=== PATIENT | female | born 1990 | race Caucasian/White ===

== ENCOUNTER → 2022-05-15 07:53 | Outpatient (CLI) | payer OTHER, SELFPAY ==
--- NOTE | ~2022-05-15 | US_ITS ---
EXAMINATION: US renal BI DATE: 05/15/2022 08:26 INDICATION: Family history of polycystic kidney disease TECHNIQUE: Multiple grayscale and Doppler ultrasound images of the kidneys were obtained. COMPARISON: None available FINDINGS: The right kidney measures 10.9 x 4.5 x 5.8 cm. The left kidney measures 11.8 x 4.4 x 4.9 cm. The kidn eys demonstrate normal parenchymal echogenicity.No sonographic evidence of nephrolithiasis. No mass. No hydronephrosis. The bladder is well-distended and normal in appearance. IMPRESSION: 1. Normal renal sonogram findings. Reviewed, dictated and finalized at location K.
== END ==
PROVIDERS: PCP Internal Medicine; Visit Provider Internal Medicine
DX: Z82.71 Family history of polycystic kidney (principal)
CPT/HCPCS: 76775

== ENCOUNTER 2022-09-16 17:46 | Emergency (ER) | payer OTHER, SELFPAY ==
--- NOTE | ~2022-09-16 | CT_ITS ---
EXAMINATION: CT brain wo con DATE: 09/16/2022 18:36 INDICATION: Left facial numbness. TECHNIQUE: Computed tomography (CT) of the head was performed without intravenous contrast. The mA wa s adjusted according to patient size. Iterative reconstruction technique was employed. The dose-lengt h product was 605.33 mGy-cm. COMPARISON: None FINDINGS: There is no intracranial hemorrhage, acute infarction, or abnormal intracranial mass lesion . The ventricles are normal in size. The orbits are normal. The paranasal sinuses are clear. The mast oid air cells are normal. IMPRESSION: 1. Normal brain. Reviewed, dictated and finalized at location A. IMPRESSION: 1. Normal brain.
[2022-09-16 17:51] VITALS: BP 142/100; PULSE 100; RESP 17; TEMP 36.7; O2SAT 100
[2022-09-16 18:10] VITALS: PULSE 110
--- NOTE | 2022-09-16 18:12 | ED.GENADULT ---
HPI - General Adult General Chief complaint: Unspecified Stated complaint: L. sided facial numbness x 2 days Time Seen by Provider: 09/16/22 18:12 History of Present Illness HPI narrative: Patient is a 32-year-old female here for evaluation of left-sided chest numbness over the past 3 days. Patient states that she feels a [id number] sensation in the left side of her chin over the past 3 days. The numbness came on around the same time she developed a cold sore on the left lower lip. She typically takes antiviral suppressants when she gets cold sores, but this time the pharmacy did not cover the prescription, and therefore she is not on any antivirals. She denies any changes to her vision, lesions to her ear or nose, fevers or chills, unilateral weakness, slurred speech, decreased hearing. She is previously healthy and does not take any medications on a daily basis. Related Data Allergies Allergy/AdvReac Type Severity Reaction Status Date / Time amoxicillin Allergy Unknown Rash Verified 09/16/22 18:09 Penicillins Allergy Unknown Rash Verified 09/16/22 18:09 Review of Systems Review of Systems: Gen: Denies fevers or chills Eyes: Denies eye pain or visual change ENT: Denies congestion Respiratory: Denies shortness of breath or cough CV: Denies chest pain or palpitations GI: Denies abdominal pain nausea, emesis or diarrhea denies burning, urgency, frequency or hematuria Musculoskeletal: Denies back pain or muscle pain Neuro: Denies numbness, tingling, weakness or focal weakness Skin: Reports left-sided chin numbness and cold sore. Except as documented, all other systems reviewed and negative [facility] Past Medical History Medical History History of miscarriage Surgical History Surgical History History of 2 sections Family History Family History Other Hypertension Social History Social History Smoking status: Never smoker Alcohol intake: current Substance use: never Exam Narrative: APPEARANCE: Well appearing, no pain in distress, well-nourished. Head: Normocephalic and atraumatic. EYES: PERRLA/EOMI, conjunctivae clear NOSE: No nasal drainage EARS: External ear normal in appearance THROAT: Oropharynx is clear. Mucous membranes are moist. NECK: Supple. No adenopathy, no masses. RESPIRATORY: Airway patent, respirations nonlabored. Clear to auscultation bilaterally, no rales, rhonchi, wheezing. CARDIOVASCULAR: Regular rate and rhythm without murmurs, rubs, or gallops. ABDOMINAL: Normoactive bowel sounds. Soft, nontender, nondistended. No rebound tenderness or guarding. MUSCULOSKELETAL: Extremities are warm and well-perfused. Moves all extremities well. No edema. NEURO: Cranial nerves II through XII intact. Sensation intact to area of numbness on chin. [id number] normal. Tool Tender strength equal. Normal gait. Normal speech. SKIN: Patient has a 0.5 cm vesicle to the left lower lip. No lesions noted to nose, ear. PSYCHIATRIC: Normal affect/mood. Course Vital Signs Vital signs: Vital Signs Temperature 98.1 F 09/16/22 17:51 Pulse Rate 100 09/16/22 17:51 Respiratory Rate 17 09/16/22 17:51 Blood Pressure 142/100 H 09/16/22 17:51 Pulse Oximetry 100 09/16/22 17:51 Oxygen Delivery Room Air 09/16/22 17:51 Temperature 98.3 F 09/16/22 19:42 Pulse Rate 76 09/16/22 19:42 Respiratory Rate 16 09/16/22 19:42 Blood Pressure 126/70 09/16/22 19:42 Pulse Oximetry 100 09/16/22 19:42 Oxygen Delivery Room Air 09/16/22 17:51 Medical Decision Making MDM Narrative Medical decision making narrative: 32-year-old female here for evaluation of some numbness under her right lip for the past 3 days in the setting of a cold sore. She is nont
[2022-09-16 18:17] VITALS: BP 120/92; PULSE 115; RESP 20
--- NOTE | 2022-09-16 18:25 | PC.NURSE ---
pt c/o left chin numbness. states similiar feeling as when you sit on your leg too long. no facial weakness. tongue midline. no drooping noted.
[2022-09-16 18:33] LABS: Basophils Absolute Auto 0.1 K/mm3 (0.0-0.1); Basophils Percent Auto 0.5 % (0.2-1.2); Eosinophils Percent Auto 0.1 % (0-4.4); Hematocrit 36.4 % (37.0-47.0); Hemoglobin 11.7 g/dL (12.0-15.0); Immature Granulocyte Absolute 0.03 K/mm3 (0.00-0.031); Immature Granulocyte Percent A 0.3 % (0-0.5); Lymphocytes Absolute Auto 1.57 K/mm3 (0.9-3.2); Lymphocytes Percent Auto 16.7 % (18.3-44.2); Mean Corpuscular HGB Conc 32.1 g/dl (32-36); Mean Corpuscular Hemoglobin 26.5 pg (26-34); Mean Corpuscular Volume 82.4 fl (80-100); Mean Platelet Volume 10.7 fl (7.4-10.4); Monocytes Absolute Auto 0.5 K/mm3 (0.1-0.6); Monocytes Percent Auto 5.3 % (2.6-8.5); Neutrophils Absolute Auto 7.2 K/mm3 (1.3-6.7); Neutrophils Percent Auto 77.1 % (45.5-73.1); Platelet Count Result 353 k/mm3 (150-375); Red Blood Count 4.42 M/mm3 (4.2-5.4); Red Cell Distribution Width 15.9 % (11.5-14.5); White Blood Count 9.4 K/mm3 (4.5-10.0)
[2022-09-16 18:45] LABS: Alanine Aminotransferase 20 U/L (6-35); Alkaline Phosphatase 59 U/L (38-126); Anion Gap 14 mmol/L (8-16); Aspartate Amino Transferase 26 U/L (14-36); Bilirubin,Total 0.3 mg/dL (0.2-1.3); Blood Urea Nitrogen 15 mg/dL (7-17); Calcium 9.5 mg/dL (8.4-10.2); Carbon Dioxide 23 mmol/L (22-30); Chloride 100 mmol/L (98-107); Estimated CRCL calculation 100 ml/min; Estimated Glomerular Filt Rate > 60; Glucose 101 mg/dL (65-110); Potassium 3.9 mmol/L (3.4-5.0); Sodium 137 mmol/L (137-145)
[2022-09-16 19:42] VITALS: BP 126/70; PULSE 76; RESP 16; TEMP 36.8; O2SAT 100
== END 2022-09-16 19:43 | disposition home or self-care (01) ==
PROVIDERS: Physician Assistant; Emergency Provider Emergency Medicine; PCP Internal Medicine
DX: B00.1 Herpesviral vesicular dermatitis (principal)
CPT/HCPCS: 36415; 70450; 80053; 85025; 99284

== ENCOUNTER 2022-12-01 09:05 | Emergency (ER) | payer OTHER, SELFPAY ==
[2022-12-01 09:16] VITALS: BP 129/96; PULSE 77; RESP 16; TEMP 36.3; O2SAT 100
--- NOTE | 2022-12-01 09:42 | ED.CHESTPAIN ---
HPI - Chest Pain General Chief Complaint: Chest Pain Stated Complaint: chest pain Time Seen by Provider: 12/01/22 09:18 Source: patient, RN notes reviewed and old records reviewed Mode of arrival: ambulatory Limitations: no limitations History of Present Illness HPI narrative: 32 year old female who presents to [facility] care with complaints of right sided chest pain along the right side of sternum which initially started about 6 months ago after picking up her twins which weigh between 50--60 pounds. patient reports that she took some Ibuprofen and rested and stopped picking up heaving things and seemed to get better. She reports that she has just been doing normal things lately not really limiting her activity and pain has increased for the past 3-4 days which is reproducible with movements and with palpation, no dyspnea, no dizziness, denies any cardiac history. MD complaint: chest discomfort Onset (ago): day(s) (3-4 days but initially 6 months ago started) Pain location: other (right side of sternum) Treatment prior to arrival: other (ibuprofen few doses) Related Data Allergies Allergy/AdvReac Type Severity Reaction Status Date / Time amoxicillin Allergy Unknown Rash Verified 12/01/22 09:26 Penicillins Allergy Unknown Rash Verified 12/01/22 09:26 Review of Systems Review of Systems: CONSTITUTIONAL: Denies fever, chills, or sweats. EYES: Denies visual changes, redness, or discharge. ENT: Denies rhinorrhea, congestion, sore throat, or otalgia. CARDIOVASCULAR: reports chest pain along right of sternum,no palpitations, or edema. RESPIRATORY: Denies cough or dyspnea. GASTROINTESTINAL: Denies abdominal pain, nausea, vomiting, or diarrhea. GENITOURINARY: Denies dysuria or hematuria. SKIN: Denies rash or itching. MUSCULOSKELETAL: Denies back pain, joint pain, or myalgia. NEUROLOGIC: Denies headache, numbness, or weakness. PSYCHIATRIC: Denies anxiety or depression. All systems reviewed & are unremarkable except as noted in HPI and below PMFSH Past Medical History Medical History (Updated 12/02/22 @ 00:01 by Marylou Rodriguez) History of miscarriage Surgical History Surgical History (Updated 12/01/22 @ 09:50 by Aileen Castillo NP) History of 2 sections History of tonsillectomy Family History Family History Other Hypertension Social History Social History (Updated 12/01/22 @ 09:49 by Aileen Castillo NP) Smoking status: Never smoker Alcohol intake: current Substance use: never Gender identity (if verbalized by the patient): Female Comments At time of signature, agree with nursing past medical, surgical, social and family history. There is no relevant family history pertinent to the presenting complaint Exam Narrative: GENERAL: Well-appearing, well-nourished, and in no acute distress. HEAD: Normocephalic, atraumatic. EYES: PERRLA and EOMI. ENT: Nares clear, no rhinorrhea or epistaxis. Mucous membranes moist.T's normal with good light reflex, throat pink with no lesions or exudates or swelling NECK: Supple.no lymphadenopathy CHEST: Clear to auscultation. No respiratory distress.tenderness to right of sternum on palpation and with certain movements, SAO2 100% on room air HEART: Regular rate and rhythm. No murmur heard. Normal peripheral pulses. ABDOMEN: Soft, nontender, nondistended, normal active bowel sounds. EXTREMITIES: Normal range of motion. No edema. SKIN: Warm, dry, no rash. NEURO: No focal deficits. Alert and oriented x3. Course Course Emergency Course: Patient is aware of diagnosis, understands and agrees to treatment plan.? Anticipatory guidance given.? Patient agrees to follow-up as directed and is aware of reasons to seek care at the emergency department. Portions of this record may have been created with voice recognition software Level of Care: Express Care Visit Vital Signs Vital signs: Vital Signs Temperature 36.3 C
== END 2022-12-01 09:59 | disposition home or self-care (01) ==
PROVIDERS: Emergency Provider Registered Nurse; PCP Internal Medicine
DX: M94.0 Chondrocostal junction syndrome [Tietze] (principal)
CPT/HCPCS: 99213; G0463

== ENCOUNTER 2022-12-02 10:14 | Outpatient (CLI) | payer OTHER, SELFPAY ==
--- NOTE | ~2022-12-02 | XR_ITS ---
XR chest 2V DATE: 12/02/2022 10:31 INDICATION: Sternal pain TECHNIQUE: 2 views COMPARISON: None FINDINGS: There is approximately 23 degrees dextroscoliosis of the thoracic spine. The sternum appear s unremarkable within the limits of this chest radiographic examination. Normal heart size. No hilar or mediastinal enlargement. The lungs are clear of infiltrate or consolidation. No pleural effusion or pulmonary vascular congest ion or pneumothorax is detected. IMPRESSION: 23 degrees thoracic dextro scoliosis No active cardiopulmonary disease Reviewed, dictated and finalized at location L. CULAR MODELER
== END 2022-12-02 10:15 ==
LOC: MICIMG 10:17
PROVIDERS: PCP Internal Medicine; Visit Provider Internal Medicine
DX: R07.89 Other chest pain (principal); M41.84 Other forms of scoliosis, thoracic region
CPT/HCPCS: 71046

== ENCOUNTER 2022-12-29 08:02 | Emergency (ER) | payer OTHER, SELFPAY ==
--- NOTE | 2022-12-29 08:05 | ED.URI ---
HPI - URI/Sore Throat General Chief Complaint: Upper Respiratory Infection Stated Complaint: FEVER/SORE THROAT/BODY ACHES/STREP EXPOSURE Time Seen by Provider: 12/29/22 08:04 Source: patient Mode of arrival: ambulatory Limitations: no limitations History of Present Illness HPI Narrative: Rosa is a 32-year-old female patient presenting to the clinic today with complaints sore throat, body aches, and fever x1 day. She reports that she has had strep exposure from her child. States highest temp was a 104? MD elicited complaint: fever, sore throat and other (Body aches) Related Data Allergies Allergy/AdvReac Type Severity Reaction Status Date / Time amoxicillin Allergy Unknown Rash Verified 12/29/22 08:13 Penicillins Allergy Unknown Rash Verified 12/29/22 08:13 Review of Systems Review of Systems: Pertinent positives per HPI. Patient denies any rash, headache, visual changes, dizziness, cough, shortness of breath, chest pain, palpitations, nausea, vomiting, diarrhea, constipation, abdominal pain, or any urinary issues. PMFSH Past Medical History Medical History History of miscarriage Surgical History Surgical History History of 2 sections History of tonsillectomy Family History Family History Other Hypertension Social History Social History Smoking status: Never smoker Alcohol intake: current Substance use: never Gender identity (if verbalized by the patient): Female Comments At the time of my signature, I reviewed and agree with the nursing past medical, surgical, social, and family history. There is no relevant family history pertinent to the patient complaint. Exam Narrative: General: Well-developed, well nourished, in no apparent distress Head: Normocephalic, atraumatic Eyes: Pupils equally round and reactive to light bilaterally, EOM intact, sclera and conjunctive clear, no discharge, lids normal Ears: TMs intact and clear, ear canals clear, no drainage, grossly hearing normal. Nose: Nares patent, no discharge, no inflammation, no sinus tenderness. Mouth: Oral pharynx without lesions or masses, good dentition, MMM. Oropharynx red with uvula swelling, tonsils surgically absent Neck: Supple, trachea midline, no enlargement of anterior or posterior cervical nodes, no thyroid masses or goiter palpable. Cardio: Regular rate and rhythm, s1 and s2 normal, no murmur appreciated. Resp: Clear to auscultation bilaterally, no rhonchi, rales, wheezing or rubs Course Course Emergency Course: Portions of this record may have been created with voice recognition software. Level of Care: Express Care Visit Vital Signs Vital signs: Vital signs reviewed MDM - URI/Sore Throat MDM Narrative Medical decision making narrative: At the time of visit patient is resting comfortably on exam table. Strep screen was obtained and was positive. Prescription for azithromycin was sent to the pharmacy and supportive measures were discussed with the patient she voiced understanding of discharge instructions and agrees to treatment plan. Differential Diagnosis Differential diagnosis: Likely upper respiratory infection, otitis media, sinusitis, viral infection, bronchitis, influenza, pharyngitis and other (COVID) Discharge Plan Discharge Clinical Impression: Strep throat Patient Disposition: Home, Self-Care Condition: Stable Instructions: Antibiotic Form, Strep Throat (ED) Additional Instructions: Strep screen was positive in the clinic today Take prescription medications only as prescribed-azithromycin Change toothbrush in 24 hours after initiation antibiotic Increase fluids and stay well hydrated Tylenol/motrin for pain/fever Flonase and OTC
[2022-12-29 08:15] VITALS: BP 124/78; PULSE 101; RESP 16; TEMP 36.6; O2SAT 100
== END 2022-12-29 08:32 | disposition home or self-care (01) ==
PROVIDERS: Emergency Provider Nurse Practitioner Family; PCP Internal Medicine
DX: J02.0 Streptococcal pharyngitis (principal)
CPT/HCPCS: 87880; 99213; G0463

== ENCOUNTER → 2023-01-11 08:39 | Outpatient (CLI) | payer OTHER, SELFPAY ==
--- NOTE | ~2023-01-11 | MMUS_ITS ---
EXAMINATION: MM diagnostic mary BI w laura, US breast BI complete HISTORY: Bilateral breast pain TECHNIQUE: Additional 3-D tomosynthesis images of the breasts were performed and synthetic 2-D images were generated. CAD analysis was submitted and interpreted. High resolution bilateral complete breas t ultrasound was performed. COMPARISON: None BREAST PARENCHYMAL COMPOSITION: Breast composed of scattered areas of fibroglandular density FINDINGS: MAMMOGRAPHIC FINDINGS: There are no suspicious masses, calcifications or architectural distortion in either breast to sugges t malignancy. ULTRASOUND: Complete bilateral US of all 4 quadrants of the breasts and retroareolar region was reviewed. Normal heterogeneous echotexture in both breasts without suspicious mass. No sonographic evidence for malign raji. IMPRESSION: 1. No evidence for malignancy in either breast. 2. Routine yearly screening mammogram and regular clinical breast examination are recommended. BI-RADS Category 1: Negative Reviewed, dictated and finalized at location A. DATION DIRECTOR IMPRESSION: 1. No evidence for malignancy in either breast. 2. Routine yearly screening mammogram and regular clinical breast examination a re recommended. BI-RADS Category 1: Negative
== END ==
PROVIDERS: PCP Internal Medicine; Visit Provider Obstetrics & Gynecology
DX: N64.4 Mastodynia (principal)
CPT/HCPCS: 76641; 77062; 77066; G0279

== ENCOUNTER 2023-03-05 14:50 | Emergency (ER) | payer OTHER, SELFPAY ==
--- NOTE | ~2023-03-05 | XR_ITS ---
EXAMINATION: XR chest 1V portable Exam Date/Time: 03/05/2023 15:27 CDT HISTORY: left chest wall pain Comparison: 12/02/2022. RESULT: Lines, tubes, and devices: None. Lungs and pleura: Clear. Cardiomediastinal silhouette: Stable. Other: No acute osseous or upper abdominal finding. IMPRESSION: No acute cardiopulmonary process. Reviewed, dictated and finalized at location K.
--- NOTE | ~2023-03-05 | CT_ITS ---
EXAMINATION: CT abdomen pelvis wo con DATE: 03/05/2023 17:12 INDICATION: rule out stone TECHNIQUE: Computed tomography (CT) of the abdomen and pelvis was performed without intravenous contr ast. Automated exposure control and iterative reconstruction technique were employed. The dose-length product was 872.11 mGy-cm. COMPARISON: None. FINDINGS: Lower thorax: Minimal dependent atelectasis. Liver: Normal. Biliary/Gallbladder: Gallbladder is normal. No bile duct dilation. Pancreas: No mass or duct dilation. Spleen: Normal. Adrenals:No mass. Kidneys: No mass, stone, or hydronephrosis. GI tract: No small or large bowel dilation. Normal appendix. Diverticulosis without diverticulitis. Mesentery/Peritoneum: No ascites, mass, or free air. Retroperitoneum: No mass. Pelvis: Mild bladder wall thickening, given the degree of distention. Small volume free pelvic fluid, within physiologic range. Normal-appearing uterus and ovaries. Soft Tissues: Soft tissues and body wall unremarkable. Bones: No acute osseous finding. IMPRESSION: Mild bladder wall thickening which may represent cystitis in the appropriate clinical context no CT e vidence of nephrolithiasis or obstructive uropathy. Reviewed, dictated and finalized at location K. IMPRESSION: Mild bladder wall thickening which may represent cystitis in the appropriate cl inical context no CT evidence of nephrolithiasis or obstructive uropathy.
[2023-03-05 14:53] VITALS: BP 152/88; PULSE 95; RESP 17; TEMP 36.8; O2SAT 97
[2023-03-05 15:01] LABS: Basophils Absolute Auto 0.1 K/mm3 (0.0-0.1); Basophils Percent Auto 0.7 % (0.2-1.2); Eosinophils Absolute Auto 0.1 K/mm3 (0-0.3); Eosinophils Percent Auto 0.9 % (0-4.4); Hematocrit 35.4 % (37.0-47.0); Hemoglobin 11.1 g/dL (12.0-15.0); Immature Granulocyte Absolute 0.02 K/mm3 (0.00-0.031); Immature Granulocyte Percent A 0.2 % (0-0.5); Lymphocytes Absolute Auto 2.38 K/mm3 (0.9-3.2); Lymphocytes Percent Auto 26.3 % (18.3-44.2); Mean Corpuscular HGB Conc 31.4 g/dl (32-36); Mean Corpuscular Hemoglobin 25.9 pg (26-34); Mean Corpuscular Volume 82.5 fl (80-100); Monocytes Absolute Auto 0.7 K/mm3 (0.1-0.6); Monocytes Percent Auto 7.2 % (2.6-8.5); Neutrophils Absolute Auto 5.9 K/mm3 (1.3-6.7); Neutrophils Percent Auto 64.7 % (45.5-73.1); Platelet Count Result 338 k/mm3 (150-375); Red Blood Count 4.29 M/mm3 (4.2-5.4); Red Cell Distribution Width 16.8 % (11.5-14.5); White Blood Count 9.1 K/mm3 (4.5-10.0)
[2023-03-05 15:13] LABS: Alanine Aminotransferase 15 U/L (6-35); Albumin Level 4.6 g/dL (3.5-5.1); Alkaline Phosphatase 57 U/L (38-126); Anion Gap 7 mmol/L (8-16); Aspartate Amino Transferase 22 U/L (14-36); Bilirubin,Total 0.4 mg/dL (0.2-1.3); Blood Urea Nitrogen 10 mg/dL (7-17); Carbon Dioxide 26 mmol/L (22-30); Chloride 105 mmol/L (98-107); Estimated CRCL calculation 135 ml/min; Estimated Glomerular Filt Rate > 60; Glucose 102 mg/dL (65-110); Lipase 43 U/L (23-300); Potassium 3.9 mmol/L (3.4-5.0); Sodium 138 mmol/L (137-145)
[2023-03-05] MEDS: ONDANSETRON INJ 4 MG/2 ML VIAL IV PUSH (15:30)
[2023-03-05] MEDS: MORPHINE SULFATE (*CRX) 2 MG/ML INJ 4 MG (15:32)
[2023-03-05 15:33] LABS: Appearance Urine Cloudy (Clear); Bacteria Urine None Seen /hpf; Bilirubin Urine Negative (Negative); Blood Urine Negative (Negative); Color Urine Yellow (Yellow); Glucose Urine UA Negative (Negative); Ketones Urine Negative (Negative); Leukocyte Esterase Ur Negative LEU/UL (Negative); Need Manual Microscopic Reviewed; Nitrate Urine Negative (Negative); Non Pathogenic Casts 0-2; Protein Urine Negative (Negative); RBC Urine 0-2 /hpf (0-2); Specific Grav Ur 1.002 (1.001-1.035); Squamous Epithelial Cell Urine None seen /hpf (Few); Urobilinogen Urine 0.2 mg/dL (<2.0); WBC Urine 0-5 /hpf
--- NOTE | 2023-03-05 15:36 | ED.BACK ---
HPI - Back Pain/Injury General Chief Complaint: Back Pain/Injury <CHELLE Dubon Last Filed: 03/05/23 19:42> Stated Complaint: upper back pain <CHELLE Dubon Last Filed: 03/05/23 19:42> Time Seen by Provider: 03/05/23 15:17 <CHELLE Dubon Last Filed: 03/05/23 19:42> History of Present Illness HPI Narrative: This is a 32-year-old female with no pertinent PMH presents the ED for chief complaint of left flank pain beginning this morning after she woke up. States the pain radiates around into her left upper abdomen and chest. She feels that it is worsened with certain movements. However it has been constant and gradually worsening all day. Rates the pain at 8 out of 10. No relief after ibuprofen x2 this morning. Patient notes that she got home from a trip to [place] yesterday. Denies shortness of breath or central chest pain. Denies cough. Denies any urinary symptoms, N/V/D. <CHELLE Dubon Last Filed: 03/05/23 19:42> Related Data Allergies/Adverse Reactions: Allergies Allergy/AdvReac Type Severity Reaction Status Date / Time amoxicillin Allergy Unknown Rash Verified 12/29/22 08:13 Penicillins Allergy Unknown Rash Verified 12/29/22 08:13 <CHELLE Dubon Last Filed: 03/05/23 19:42> Review of Systems Review of Systems: CONSTITUTIONAL: Denies fever, chills, or sweats. EYES: Denies visual changes, redness, or discharge. ENT: Denies rhinorrhea, congestion, sore throat, or otalgia. CARDIOVASCULAR: Denies chest pain, palpitations, or edema. RESPIRATORY: Denies cough or dyspnea. GASTROINTESTINAL: Endorses left flank pain. denies nausea, vomiting, or diarrhea. GENITOURINARY: Denies dysuria or hematuria. SKIN: Denies rash or itching. MUSCULOSKELETAL: Endorses left back pain. Denies joint pain, or myalgia. NEUROLOGIC: Denies headache, numbness, dizziness, or weakness. PSYCHIATRIC: Denies anxiety or depression. <CHELLE Dubon Last Filed: 03/05/23 19:42> [facility] Past Medical History Medical History: Medical History History of miscarriage <CHELLE Dubon Last Filed: 03/05/23 19:42> Surgical History Surgical History: Surgical History History of 2 sections History of tonsillectomy <CHELLE Dubon Last Filed: 03/05/23 19:42> Family History Family History: Family History Other Hypertension <CHELLE Dubon Last Filed: 03/05/23 19:42> Social History Social History: Social History Smoking status: Never smoker Alcohol intake: current Substance use: never Gender identity (if verbalized by the patient): Female <CHELLE Dubon Last Filed: 03/05/23 19:42> Exam Narrative: GENERAL: Well-appearing, well-nourished, and in no acute distress. HEAD: Normocephalic, atraumatic. EYES: PERRLA and EOMI. ENT: Nares clear, no rhinorrhea or epistaxis. Mucous membranes moist. Oropharynx without tonsillar hypertrophy exudate or other lesions. NECK: Supple. No adenopathy or masses. CHEST: No respiratory distress. Clear to auscultation. No wheezes rales or rhonchi. There is some reproducible chest wall tenderness on the left side posteriorly. Sats 99% on room air. HEART: Regular rate and rhythm. No murmur heard. Normal peripheral pulses. ABDOMEN: Mild left flank tenderness. Soft, otherwise nontender, nondistended, normal active bowel sounds. EXTREMITIES: Normal range of motion. No edema. SKIN: Warm, dry, no rash. NEURO: Alert and oriented x3. No focal deficits. PSYCH: Normal mood and affect. <CHELLE Dubon Last Filed: 03/05/23 19:42> Course SECURITY FLEX OFFICER/PA Physician Supervision For this patient encounter, I reviewed the SECURITY FLEX OFFICER or PA documentation, treatment
[2023-03-05 15:41] LABS: Add Urine Microscopic? YES
[2023-03-05 16:04] LABS: D Dimer < 0.27 ug/mL (<0.48)
--- NOTE | 2023-03-05 17:58 | ECG_ITS ---
Measurements Intervals Mobile Rate: 75 P: 55 OK: 166 QRS: 13 QRSD: 82 T: 17 QT: 363 QTc: 407 Interpretive Statements SINUS RHYTHM WITH SINUS ARRHYTHMIA NORMAL ECG NO PREVIOUS ECG AVAILABLE FOR COMPARISON Electronically Signed On 03-06-2023 13:37:51 CDT by Mike Bustamante M.D.
[2023-03-05 18:16] VITALS: BP 143/87; PULSE 71; RESP 18; O2SAT 99
== END 2023-03-05 18:45 | disposition home or self-care (01) ==
PROVIDERS: Emergency Medicine; Emergency Provider Physician Assistant; PCP Internal Medicine
DX: M54.9 Dorsalgia, unspecified (principal)
CPT/HCPCS: 36415; 71045; 74176; 80053; 81001; 83690; 85025; 85380; 93005; 96374; 96375; 99284; J2270; J2405

== ENCOUNTER 2023-06-08 09:02 | Emergency (ER) | payer OTHER, SELFPAY ==
--- NOTE | 2023-06-08 09:05 | ED.URI ---
HPI - URI/Sore Throat General Chief Complaint: Upper Respiratory Infection Stated Complaint: Sore throat, headache, kids had strep Source: patient and RN notes reviewed Mode of arrival: ambulatory Limitations: no limitations History of Present Illness HPI Narrative: Patient is a 33-year-old female who presents to the [facility] with of sore throat starting night. States that the pain worsens with swallowing. However, she denies difficulty swallowing. Patient also endorses a headache and generalized fatigue. She denies abdominal pain, nausea, vomiting, diarrhea. Denies recent fever chills. Denies chest pain, shortness of breath, cough. Patient states that her kids were recently diagnosed with strep. Related Data Home Medications Medication Instructions Recorded Confirmed No Home Medications 06/08/23 06/08/23 Allergies Allergy/AdvReac Type Severity Reaction Status Date / Time amoxicillin Allergy Unknown Rash Verified 06/08/23 09:13 Penicillins Allergy Unknown Rash Verified 06/08/23 09:13 Review of Systems Review of Systems: CONSTITUTIONAL: Denies fever, chills, or sweats. EYES: Denies visual changes, redness, or discharge. ENT: Denies ear pain. Reports sore throat. CARDIOVASCULAR: Denies chest pain, palpitations, or edema. RESPIRATORY: Denies cough or dyspnea. GASTROINTESTINAL: Denies abdominal pain, nausea, vomiting, or diarrhea. GENITOURINARY: Denies dysuria or hematuria. SKIN: Denies rash or itching. MUSCULOSKELETAL: Denies back pain, joint pain, or myalgia. NEUROLOGIC: Denies numbness or weakness. Reports headache. Pertinent positives per HPI. [facility] Past Medical History Medical History History of miscarriage Surgical History Surgical History History of 2 sections History of tonsillectomy Family History Family History Other Hypertension Social History Social History Smoking status: Never smoker Alcohol intake: current Substance use: never Gender identity (if verbalized by the patient): Female Comments At the time of my signature, I reviewed and agree with the nursing past medical, surgical, social, and family history. There is no relevant family history pertinent to the patient complaint. Exam Narrative: GENERAL: This is a well-nourished, well-developed patient, in no apparent distress. HEAD: normocephalic, atraumatic. EYES: Sclera clear/white. Vision is grossly intact. EARS: External ears normal, auditory canals clear and without drainage, TMs normal without perforation. Hearing grossly intact. NOSE: External nose normal with no obvious nasal discharge, nares without redness, no rhinorrhea. THROAT: Mucous membranes moist, oropharyngeal erythema. NECK: Neck supple, non-tender without lymphadenopathy, masses or thyromegaly. CARDIOVASCULAR: Regular rate and rhythm without murmurs, gallops, or rubs. RESPIRATORY: Clear to auscultation. Breath sounds equal bilaterally. No wheezes, rales, or rhonchi. GASTROINTESTINAL: Abdomen soft, non-tender, nondistended. Bowel sounds are active. No hepato-splenomegaly, or palpable masses. No guarding. SKIN: warm, intact with no suspicious lesions or rash, good texture and turgor. NEURO: awake, alert, and oriented to person, place and time. There were no obvious focal neurologic abnormalities. Course Course Level of Care: Express Care Visit Vital Signs Vital signs: Vital Signs Temperature 97.7 F 06/08/23 09:08 Pulse Rate 78 06/08/23 09:08 Respiratory Rate 16 06/08/23 09:08 Blood Pressure 119/87 06/08/23 09:08 Pulse Oximetry 100 06/08/23 09:08 Temperature 97.7 F 06/08/23 09:08 Pulse Rate 78 06/08/23 09:08 Respiratory Rate 16 06/08/23 09:08 Blood Pressure 119/87
[2023-06-08 09:08] VITALS: BP 119/87; PULSE 78; RESP 16; TEMP 36.5; O2SAT 100
== END 2023-06-08 09:30 | disposition home or self-care (01) ==
PROVIDERS: Emergency Provider Nurse Practitioner; PCP Internal Medicine
DX: J02.9 Acute pharyngitis, unspecified (principal)
CPT/HCPCS: 87081; 87880; 99213; G0463

== ENCOUNTER 2023-08-15 18:11 | Emergency (ER) | payer OTHER, SELFPAY ==
--- NOTE | 2023-08-15 18:19 | ED.URI ---
HPI - URI/Sore Throat General Chief Complaint: Upper Respiratory Infection Stated Complaint: Strep test Time Seen by Provider: 08/15/23 18:19 Source: patient Mode of arrival: ambulatory Limitations: no limitations History of Present Illness HPI Narrative: Patient is a 33-year-old female that presents with sore throat that started today. Patient reports both children are positive for strep. Denies any congestion, ear pain, cough, nausea, vomiting, diarrhea, fever, chills. Related Data Allergies Allergy/AdvReac Type Severity Reaction Status Date / Time amoxicillin Allergy Unknown Rash Verified 08/15/23 19:09 Penicillins Allergy Unknown Rash Verified 08/15/23 19:09 Review of Systems Review of Systems: All systems reviewed & are unremarkable except as noted in HPI and below Constitutional: Constitutional: Denies body ache(s), Denies chills, Denies fatigue, Denies fever(s), Denies headache(s), Denies malaise and Denies weakness Eyes: Eyes: Denies blurry vision, Denies itchy eyes and Denies loss of vision ENT: Denies otalgia, Denies headache(s), Denies nasal congestion, Denies sinus pain and Reports sore throat Cardiovascular: Cardiovascular: Denies chest pain, Denies irregular heart rhythm and Denies dyspnea Respiratory: Respiratory: Denies cough and Denies dyspnea Gastrointestinal: Gastrointestinal: Denies abdominal pain, Denies diarrhea, Denies nausea and Denies vomiting Musculoskeletal: Musculoskeletal: Denies back pain, Denies myalgias and Denies arthralgias Integumentary/Breasts: Skin/Breast: Denies pruritus and Denies rash Neurologic: Denies headache(s), Denies loss of vision and Denies weakness Psychiatric: Psychiatric: Reports no additional psychiatric complaints Endocrine: Endocrine: Denies fatigue Allergic/Immunologic: Allergic/Immunologic: Denies itchy eyes PMFSH Past Medical History Medical History History of miscarriage Surgical History Surgical History History of 2 sections History of tonsillectomy Family History Family History Other Hypertension Social History Social History Smoking status: Never smoker Alcohol intake: current Substance use: never Lack of Transportation: No Lack of Food: Never True Current Housing: I Have Housing Concerned About Future Housing: No Difficulty Paying Gas/Electric Bills: No Difficulty Paying for Meds: No Currently Unemployed: No Education: Bachelor's Degree Difficulty w/ Childcare or Family Care: No Living arrangements: with family Occupation/Education: occupation Gender identity (if verbalized by the patient): Female Sexual Orientation (if Verbalized by the Patient): Lesbian, Corea, or Homosexual Spiritual care concerns: No Comments At time of signature, agree with nursing past medical, surgical, social and family history. There is no relevant family history pertinent to the presenting complaint. Exam Const: General: cooperative, healthy appearing, comfortable, no acute distress and well nourished Nutritional Appearance: well nourished Orientation/consciousness: patient oriented x3 Limitations: no limitations HENMT: Head: normal to inspection, normocephalic and atraumatic Ears: hearing grossly normal bilaterally, external ears normal, TM's normal bilaterally, EAC's normal and no periauricular adenopathy Face/Nose/Sinus: Normal external nose present, Normal nasal mucous membranes and turbinates present, normal facial exam, sinuses nontender and face symmetric Face and sinus: normal facial exam, sinuses nontender and face symmetric Mouth: Yes Normal oral and palatal mucosa present, Yes lip normal, Yes tongue normal, Yes Normal salivary glands and ducts present, Yes oropharynx normal and Yes moist
[2023-08-15 19:10] VITALS: BP 135/93; PULSE 98; RESP 16; TEMP 36.9; O2SAT 100
== END 2023-08-15 19:32 | disposition home or self-care (01) ==
PROVIDERS: Emergency Provider Nurse Practitioner Family; PCP Internal Medicine
DX: J02.9 Acute pharyngitis, unspecified (principal)
CPT/HCPCS: 87081; 87880; 99213; G0463

== ENCOUNTER 2023-12-23 09:57 | Outpatient (CLI) | payer OTHER, SELFPAY ==
--- NOTE | ~2023-12-23 | MMUS_ITS ---
EXAMINATION: MM diagnostic mary LT w laura, US breast LT limited HISTORY: Palpable lump at the 9:00 location of the left breast. TECHNIQUE: Craniocaudal, mediolateral, and mediolateral oblique 3-D tomosynthesis images of the left breast were performed and synthetic 2-D images were generated. CAD analysis was submitted and interpr eted. High resolution limited left breast ultrasound was performed. COMPARISON: 01/11/2023 BREAST PARENCHYMAL COMPOSITION: There are scattered areas of fibroglandular density. FINDINGS: MAMMOGRAPHIC FINDINGS: No suspicious mass, calcification, or architectural distortion are identified to suggest malignancy. There has been no suspicious interval change. No mammographic correlate is identified for the reporte d palpable lump of the left breast. ULTRASOUND: There is no evidence of focal abnormal solid or cystic mass in the vicinity of the reported palpable abnormality of the left breast. IMPRESSION: 1. No specific mammographic or sonographic correlate is identified for the reported palpable abnormal ity of concern in the left breast. Further evaluation at this time should be based on clinical assess ment. Continued follow-up physical examination is recommended. 2. Recommend routine screening mammography beginning at age 40. BI-RADS Category 1: Negative Reviewed, dictated and finalized at location [facility]. [facility] IMPRESSION: 1. No specific mammographic or sonographic correlate is identified for the repo rted palpable abnormality of concern in the left breast. Further evaluation at this time should be based on clinical assessment. Continued follow-up physical examination is recommended. 2. Recommend routine screening mammography beginning at age 40. BI-RADS Category 1: Negative
== END 2023-12-23 09:58 | disposition home or self-care (01) ==
LOC: CHSIMG 09:58
PROVIDERS: PCP Internal Medicine; Visit Provider Nurse Practitioner Family
DX: N63.25 Unspecified lump in the left breast, overlapping quadrants (principal)
CPT/HCPCS: 76642; 77061; 77065; G0279

== ENCOUNTER 2024-02-15 13:39 | Outpatient (CLI) | payer OTHER, SELFPAY ==
--- NOTE | ~2024-02-15 | CT_ITS ---
EXAMINATION: CT abdomen pelvis wo con DATE: 02/15/2024 13:51 INDICATION: Left lower quadrant abdominal pain TECHNIQUE: Computed tomography (CT) of the abdomen and pelvis was performed without intravenous contr ast. Automated exposure control and iterative reconstruction technique were employed. Exam dose: 770 .48 mGy-cm total exam DLP. COMPARISON: 2022 CT abdomen pelvis FINDINGS: The lung bases are clear. Normal heart size. No pericardial or pleural effusion. The liver, spleen, pancreas, adrenal glands, gallbladder, bile ducts, pancreatic duct and kidneys are unremarkable on this limited noncontrast examination. Normal caliber of the abdominal aorta. No intraperitoneal or retroperitoneal or pelvic mass lesion or adenopathy or ascites. Retroverted uterus. Adnexal areas are unremarkable. The urinary bladder wall is diffusely moderately thickened; cystitis is not excluded. Normal appendix. Diverticulosis of the colon; no CT evidence of diverticulitis. Small fat-containing umbilical hernia. Included skeletal structures are unremarkable. IMPRESSION: Diverticulosis of the colon; no CT evidence of diverticulitis Retroverted uterus Diffuse urinary bladder wall thickening; recommend clinical correlation to exclude cystitis Reviewed, dictated and finalized at [facility]. Reviewed, dictated and finalized at location B. IMPRESSION: Diverticulosis of the colon; no CT evidence of diverticulitis Retroverted uterus Diffuse urinary bladder wall thickening; recommend clinical correlation to excl ude cystitis
== END 2024-02-15 13:40 ==
LOC: MICIMG 13:40
PROVIDERS: PCP Internal Medicine; Visit Provider Surgery
DX: K57.30 Diverticulosis of large intestine without perforation or abscess without bleeding (principal); N85.4 Malposition of uterus; N32.89 Other specified disorders of bladder
CPT/HCPCS: 74176

== ENCOUNTER 2024-03-08 11:29 | Outpatient (CLI) | payer OTHER, SELFPAY ==
--- NOTE | ~2024-03-08 | US_ITS ---
EXAMINATION: US soft tissue groin LT DATE: 03/08/2024 11:44 INDICATION: Left lower quadrant abdominal pain TECHNIQUE: Multiple grayscale and Doppler ultrasound images of the region of concern at the left ingu inal region were obtained including during Valsalva. COMPARISON: CT dated 02/15/2024 FINDINGS/IMPRESSION: Normal study. No left inguinal hernia, pathologically enlarged lymphadenopathy or other abnormal mass es or fluid collections identified. Reviewed, dictated and finalized at location B.
== END 2024-03-08 11:30 ==
LOC: MICIMG 11:30
PROVIDERS: PCP Surgery; Visit Provider Surgery
DX: R59.0 Localized enlarged lymph nodes (principal)
CPT/HCPCS: 76882

== ENCOUNTER 2024-05-28 12:29 | Outpatient (CLI) | payer OTHER, SELFPAY ==
--- NOTE | ~2024-05-28 | US_ITS ---
EXAMINATION: US thyroid DATE: 05/28/2024 13:12 INDICATION: Thyroid nodule. TECHNIQUE: Multiple ultrasound images of the thyroid were obtained. COMPARISON: None. FINDINGS: The right thyroid lobe measures 5.5 x 1.9 x 1.4 cm. The left thyroid lobe measures 4.5 x 1.7 x 1.3 c m. In the left thyroid lobe, there is a 6 mm mixed cystic and solid, hyperechoic, wider than tall no dule with smooth margin without echogenic foci (TI-RADS TR2). In the right thyroid lobe, there is a 6 mm cystic nodule (TR1). IMPRESSION: 1. Small thyroid nodules, likely not clinically significant. No follow-up is needed. Reviewed, dictated and finalized at location A. IMPRESSION: 1. Small thyroid nodules, likely not clinically significant. No follow-up is ne eded.
--- NOTE | ~2024-05-28 | US_ITS ---
EXAMINATION TYPE: US breast BI limited COMPARISON: 12/23/2023, 01/11/2023 REASON FOR STUDY: N63.20 - Unspecified lump in the left breast, unspecified... TECHNIQUE: Targeted sonographic evaluation of the bilateral breasts was performed. INTERPRETATION: Sonographic imaging of the right 4:00 region, 5 cm from the nipple was performed. Urinary left breast 8:00 position, 7 cm from the nipple was performed. No solid or cystic lesion seen in the region scanned. No sonographic abnormality identified in the region scanned. IMPRESSION: Negative. No sonographic correlate is seen at the areas of palpable concern noted above. BI-RADS CATEGORY: BI-RADS 1: Negative Reviewed, dictated and finalized at location . IMPRESSION: Negative. No sonographic correlate is seen at the areas of palpable concern not ed above. BI-RADS CATEGORY: BI-RADS 1: Negative
== END 2024-05-28 12:30 | disposition home or self-care (01) ==
LOC: CHSIMG 12:31
PROVIDERS: PCP Internal Medicine; Visit Provider Internal Medicine
DX: N63.25 Unspecified lump in the left breast, overlapping quadrants (principal); N63.15 Unspecified lump in the right breast, overlapping quadrants; E04.2 Nontoxic multinodular goiter
CPT/HCPCS: 76536; 76642

== ENCOUNTER 2024-07-16 07:08 | Outpatient (CLI) | payer OTHER, SELFPAY ==
[2024-07-16 08:27] LABS: Alanine Aminotransferase 10 U/L (6-35); Albumin Level 4.3 g/dL (3.5-5.1); Alkaline Phosphatase 40 U/L (38-126); Anion Gap 12 mmol/L (4-12); Aspartate Amino Transferase 30 U/L (14-36); Bilirubin,Total 0.2 mg/dL (0.2-1.3); Blood Urea Nitrogen 6 mg/dL (7-17); Calcium 9.2 mg/dL (8.4-10.2); Carbon Dioxide 25 mmol/L (22-30); Chloride 99 mmol/L (98-107); Estimated Glomerular Filt Rate > 60; Glucose 93 mg/dL (65-110); Potassium 3.9 mmol/L (3.4-5.0); Sodium 136 mmol/L (137-145)
== END 2024-07-16 07:09 | disposition home or self-care (01) ==
LOC: ANHLAB 07:10
PROVIDERS: PCP Internal Medicine; Visit Provider Internal Medicine
DX: R42 Dizziness and giddiness (principal)
CPT/HCPCS: 36415; 80053

== ENCOUNTER 2024-10-23 12:35 | Outpatient (CLI) | payer OTHER, SELFPAY ==
[2024-10-23 13:16] LABS: Alanine Aminotransferase 8 U/L (6-35); Albumin Level 4.2 g/dL (3.5-5.1); Alkaline Phosphatase 43 U/L (38-126); Anion Gap 6 mmol/L (4-12); Aspartate Amino Transferase 17 U/L (14-36); Bilirubin,Total 0.3 mg/dL (0.2-1.3); Blood Urea Nitrogen 7 mg/dL (7-17); Calcium 8.7 mg/dL (8.4-10.2); Carbon Dioxide 28 mmol/L (22-30); Chloride 102 mmol/L (98-107); Estimated Glomerular Filt Rate > 60; Glucose 97 mg/dL (65-110); Potassium 3.7 mmol/L (3.4-5.0); Sodium 136 mmol/L (137-145)
== END 2024-10-23 12:36 | disposition home or self-care (01) ==
LOC: ANHLAB 12:37
PROVIDERS: PCP Internal Medicine; Visit Provider Internal Medicine
DX: E66.9 Obesity, unspecified (principal)
CPT/HCPCS: 36415; 80053; 84443

== ENCOUNTER 2024-11-05 10:27 | Outpatient (CLI) | payer OTHER, SELFPAY ==
[2024-11-05 12:01] LABS: Basophils Absolute Auto 0.1 K/mm3 (0.0-0.1); Basophils Percent Auto 1.3 % (0.2-1.2); Eosinophils Absolute Auto 0.1 K/mm3 (0-0.3); Eosinophils Percent Auto 1.3 % (0-4.4); Hematocrit 33.2 % (37.0-47.0); Hemoglobin 10.2 g/dL (12.0-15.0); Immature Granulocyte Absolute 0.01 K/mm3 (0.00-0.031); Immature Granulocyte Percent A 0.2 % (0-0.5); Lymphocytes Absolute Auto 1.44 K/mm3 (0.9-3.2); Lymphocytes Percent Auto 26.5 % (18.3-44.2); Mean Corpuscular HGB Conc 30.7 g/dl (32-36); Mean Corpuscular Hemoglobin 25.5 pg (26-34); Mean Platelet Volume 10.9 fl (7.4-10.4); Monocytes Absolute Auto 0.4 K/mm3 (0.1-0.6); Monocytes Percent Auto 8.1 % (2.6-8.5); Neutrophils Absolute Auto 3.4 K/mm3 (1.3-6.7); Neutrophils Percent Auto 62.6 % (45.5-73.1); Platelet Count Result 301 k/mm3 (150-375); Red Cell Distribution Width 16.3 % (11.5-14.5); White Blood Count 5.4 K/mm3 (4.5-10.0)
[2024-11-05 12:12] LABS: Lactate Dehydrogenase 146 U/L (120-246)
[2024-11-05 12:55] LABS: Iron 155 ug/dL (37-170)
[2024-11-05 13:04] LABS: Percent Iron Saturation 40 % (20-50)
[2024-11-05 13:31] LABS: Ferritin 6.88 ng/mL (6.24-137)
== END 2024-11-05 10:28 | disposition home or self-care (01) ==
LOC: ANHLAB 10:30
PROVIDERS: PCP Internal Medicine; Visit Provider Internal Medicine
DX: D50.9 Iron deficiency anemia, unspecified (principal); R61 Generalized hyperhidrosis
CPT/HCPCS: 36415; 82607; 82728; 82746; 83540; 83550; 83615; 85025

== ENCOUNTER 2024-11-07 08:16 | Outpatient (CLI) | payer OTHER, SELFPAY ==
--- NOTE | ~2024-11-07 | US_ITS ---
EXAMINATION: US soft tissue head and neck DATE: 11/07/2024 08:34 INDICATION: Right supraclavicular lump. Cervical lymphadenopathy. TECHNIQUE: Multiple grayscale and Doppler ultrasound images of the head and neck were obtained. COMPARISON: None FINDINGS: There is no abnormal mass or lymphadenopathy in the right supraclavicular region. IMPRESSION: 1. No abnormal mass or lymphadenopathy in the right supraclavicular region. Reviewed, dictated and finalized at location A. PM[employer]ER
== END 2024-11-07 08:17 | disposition home or self-care (01) ==
LOC: GOSHIMG 08:18
PROVIDERS: PCP Internal Medicine; Visit Provider Internal Medicine
DX: R59.0 Localized enlarged lymph nodes (principal)
CPT/HCPCS: 76536

== ENCOUNTER 2024-12-10 08:37 | Outpatient (CLI) | payer OTHER, SELFPAY ==
[2024-12-10 09:00] LABS: Basophils Absolute Auto 0.1 K/mm3 (0.0-0.1); Basophils Percent Auto 1.2 % (0.2-1.2); Eosinophils Absolute Auto 0.2 K/mm3 (0-0.3); Eosinophils Percent Auto 3.2 % (0-4.4); Hematocrit 37.6 % (37.0-47.0); Hemoglobin 11.4 g/dL (12.0-15.0); Immature Granulocyte Absolute 0.01 K/mm3 (0.00-0.031); Immature Granulocyte Percent A 0.2 % (0-0.5); Lymphocytes Absolute Auto 1.81 K/mm3 (0.9-3.2); Lymphocytes Percent Auto 31.9 % (18.3-44.2); Mean Corpuscular HGB Conc 30.3 g/dl (32-36); Mean Corpuscular Hemoglobin 26.6 pg (26-34); Mean Corpuscular Volume 87.6 fl (80-100); Mean Platelet Volume 10.7 fl (7.4-10.4); Monocytes Absolute Auto 0.5 K/mm3 (0.1-0.6); Neutrophils Absolute Auto 3.1 K/mm3 (1.3-6.7); Neutrophils Percent Auto 54.5 % (45.5-73.1); Platelet Count Result 339 k/mm3 (150-375); Red Blood Count 4.29 M/mm3 (4.2-5.4); Red Cell Distribution Width 19.5 % (11.5-14.5); White Blood Count 5.7 K/mm3 (4.5-10.0)
[2024-12-10 09:18] LABS: Iron 41 ug/dL (37-170)
[2024-12-10 09:31] LABS: Percent Iron Saturation 12 % (20-50)
[2024-12-11 17:17] LABS: Ferritin 6.22 ng/mL (6.24-137)
== END 2024-12-10 08:38 | disposition home or self-care (01) ==
LOC: ANHLAB 08:39
PROVIDERS: PCP Internal Medicine; Visit Provider Internal Medicine
DX: D64.9 Anemia, unspecified (principal)
CPT/HCPCS: 36415; 82728; 83540; 83550; 85025

== ENCOUNTER 2025-01-13 08:00 | Emergency (ER) | payer OTHER, SELFPAY ==
--- NOTE | 2025-01-13 08:02 | ED.URI ---
HPI - URI/Sore Throat General Chief Complaint: Upper Respiratory Infection Stated Complaint: Flu Symptoms Time Seen by Provider: 01/13/25 08:01 Source: patient Mode of arrival: ambulatory Limitations: no limitations History of Present Illness HPI Narrative: Ruthie is a 34-year-old female patient presenting to the clinic today with complaints of flu-like symptoms. She reports symptoms started last night with a scratchy throat. She reports she has woke up with nasal congestion, sore throat, cough, body aches, chills and overall fatigue. States she feels as though she got hit by a [employer] truck. Denies any known fever. No known sick contacts. MD elicited complaint: cough, sore throat and nasal congestion Related Data Home Medications ?Medication ?Instructions ?Recorded ?Confirmed ?Last Taken ?Type escitalopram oxalate 10 mg tablet 10 mg PO DAILY 03/26/24 08/29/24 Unknown History (Lexapro) semaglutide (weight loss) 0.5 mg subcut 01/13/25 Unknown History mg/0.5 mL subcutaneous pen injector (Wegovy) Allergies Allergy/AdvReac Type Severity Reaction Status Date / Time amoxicillin Allergy Unknown Rash Verified 01/13/25 08:17 Penicillins Allergy Unknown Rash Verified 01/13/25 08:17 Review of Systems Review of Systems: Pertinent positives per HPI. Patient denies any fever, rash, headache, visual changes, dizziness, cough, shortness of breath, chest pain, palpitations, nausea, vomiting, diarrhea, constipation, abdominal pain, or any urinary issues. PMFSH Past Medical History Medical History History of miscarriage Surgical History Surgical History History of tonsillectomy History of 2 sections Family History Family History Father Depression Mother Hypertension Depression Social History Social History Smoking status: Never smoker Alcohol intake: current Substance use: never Substance use type: does not use Do You Feel Safe in your Home?: Yes Lack of Transportation: No Lack of Food: Never True Current Housing: I Have Housing Concerned About Future Housing: No Difficulty Paying Gas/Electric Bills: No Difficulty Paying for Meds: No Currently Unemployed: No Education: Bachelor's Degree Difficulty w/ Childcare or Family Care: No Living arrangements: with family Occupation/Education: occupation Gender identity (if verbalized by the patient): Female Sexual Orientation (if Verbalized by the Patient): Lesbian, Corea, or Homosexual Spiritual care concerns: No Comments At the time of my signature, I reviewed and agree with the nursing past medical, surgical, social, and family history. There is no relevant family history pertinent to the patient complaint. Exam Narrative: General: Well-developed, well nourished, in no apparent distress Head: Normocephalic, atraumatic Eyes: Pupils equally round and reactive to light bilaterally, EOM intact, sclera and conjunctive clear, no discharge, lids normal Ears: TMs intact and clear, ear canals clear, no drainage, grossly hearing normal. Nose: Nares patent, clear nasal discharge, no inflammation, no sinus tenderness. Mouth: Oral pharynx red without lesions or masses, good dentition, MMM. Neck: Supple, trachea midline, no enlargement of anterior or posterior cervical nodes, no thyroid masses or goiter palpable. Cardio: Regular rate and rhythm, s1 and s2 normal, no murmur appreciated. Resp: Clear to auscultation bilaterally, no rhonchi, rales, wheezing or rubs Course Course Emergency Course: Portions of this record may have been created with voice recognition software. Level of Care: Express Care Visit Vital Signs Vital signs: Vital Signs Temperature 37.2 C 01/13/25 08:09 Pulse Rate 112 H 01/13/25 08:09 Respiratory Rate 01/13/25 08:09 Blood Pressure 95/57 L 01/13/25 08:09 Pulse Oximetry 100 01/13/25 08:09 Temperature 37.2 C 01/13/25 08:09 Pulse Rate 112 H 01/13/25 08:09 Respiratory Rate 16 01/13/25 08:09 Blood Pressure 95/57 L 01/13/25 08:09 Pulse Oximetry 100 01/13/25 08:09 Vital signs reviewed MDM - URI/Sore Throat MDM Narrative Medical decision making narrative: At the time of visit patient is resting comfortably on the exam table. Patient appears to be nontoxic. Labs: Influenza and strep test was performed. Strep test was positive. Influenza testing is negative. Plan: Patient has strep. Will place her on azithromycin. Supportive measures were discussed with the patient and they voiced understanding discharge instructions and agrees to treatment plan. Return precautions reviewed Differential Diagnosis Differential diagnosis: Likely upper respiratory infection, otitis media, sinusitis, viral infection, bronchitis, influenza, pharyngitis and other (COVID) Discharge Plan Discharge Clinical Impression: Strep pharyngitis Patient Disposition: Home, Self-Care Condition: Stable Instructions: Antibiotic Form, Strep Throat (ED) Additional Instructions: Influenza testing was negative in the clinic today. Strep test was positive in the clinic today. Change her toothbrush in 24 hours after initiation of the antibiotics Take prescription medications only as prescribed- azithromycin Increase fluids and stay well hydrated Tylenol/motrin for pain/fever Flonase and OTC antihistamines as directed Vicks vapor rub to open sinuses Sinus rinses for congestion Cepacol spray, cough drops, throat lozenges, warm tea with honey/lemon, gargle salt water to soothe throat BRAT diet for diarrhea Clear liquids x 24 hours then advance as tolerated for nausea/vomiting Go to the ED if you develop a worsening in your condition- high fever not controlled by Tylenol or Motrin, dehydration, weakness, lethargy, shortness of breath, or chest pain. Follow up with your PCP in 3-5 days if symptoms persist. Patient Language: Cambodian Prescriptions: New azithromycin 250 mg tablet See Rx Instructions .ROUTE .COMPLEX Qty: 6 0RF Rx Instructions: For 250 mg dose pack: take 500 mg today (day 1), then 250 mg for 4 days (days 2-5) No Action Wegovy 0.5 mg/0.5 mL pen injector SUBCUT escitalopram oxalate [Lexapro] 10 mg tablet 10 mg PO DAILY Follow-up/Referrals: Yusuf,CHELLE Long [Primary Care Provider] - Time of Disposition: 08:26 Quality NIHSS Nursing Documentation ED NIHSS nursing documentation: reviewed/agree
[2025-01-13 08:09] VITALS: BP 95/57; PULSE 112; RESP 16; TEMP 37.2; O2SAT 100
[2025-01-13 08:21] LABS: EDSTREPNEGPOS1 Positive (Negative)
[2025-01-13 08:27] LABS: EDINFLUASCREEN Negative (Negative); EDINFLUBSCREEN Negative (Negative)
== END 2025-01-13 08:28 | disposition home or self-care (01) ==
PROVIDERS: Emergency Provider Nurse Practitioner Family; PCP Physician Assistant
DX: J02.0 Streptococcal pharyngitis (principal)
CPT/HCPCS: 87804; 87880; 99213; G0463

== ENCOUNTER 2025-04-03 11:31 | Outpatient (CLI) | payer OTHER, SELFPAY ==
--- NOTE | ~2025-04-03 | US_ITS ---
Pelvic ultrasound. Clinical History: Abnormal uterine bleeding Technique: Realtime transabdominal and transvaginal scanning of the pelvis was performed. Color flow Doppler and Doppler spectral analysis were performed. Findings: The uterus is anteverted. The endometrial stripe has a thickness of 12 mm. There is probab le calcification versus complex cyst of the cervix.. The right ovary measures 4.4 x 2.2 x 2.6 cm. No significant right ovarian or adnexal mass is seen. The left ovary measures 5.1 x 2.5 x 3.3 cm. Simple left ovarian cyst measures 2.5 cm in diameter. There is no evidence of free fluid in the cul de sac. Impression: 2.5 cm simple left ovarian cyst. Reviewed, dictated and finalized at [facility]. Impression: 2.5 cm simple left ovarian cyst.
== END 2025-04-03 11:32 | disposition home or self-care (01) ==
LOC: GOSHIMG 11:31
PROVIDERS: PCP Nurse Practitioner Obstetrics & Gynecology; Visit Provider Nurse Practitioner Obstetrics & Gynecology
DX: N93.9 Abnormal uterine and vaginal bleeding, unspecified (principal); N83.202 Unspecified ovarian cyst, left side
CPT/HCPCS: 76830; 76856

== ENCOUNTER 2025-04-23 09:29 | Outpatient (CLI) | payer OTHER, SELFPAY ==
--- NOTE | ~2025-04-23 | MMUS_ITS ---
EXAMINATION: US breast BI complete, MM diagnostic mary BI w luara HISTORY: Mastodynia TECHNIQUE: Additional 3-D tomosynthesis images of the breasts were performed and synthetic 2-D images were generated. CAD analysis was submitted and interpreted. High resolution bilateral complete breas t ultrasound was performed. COMPARISON: Comparison to multiple prior studies sequentially, with oldest reviewed study dated 01/11. BREAST PARENCHYMAL COMPOSITION: Dense: The breasts are heterogeneously dense, which may obscure small masses FINDINGS: MAMMOGRAPHIC FINDINGS: There are no suspicious masses, calcifications or architectural distortion in either breast to sugges t malignancy. ULTRASOUND: Complete US of all 4 quadrants of the breast/s and retroareolar region was reviewed. Right breast: Normal heterogeneous echotexture without focal solid or cystic mass. Left breast: At 6:00, 3 cm from the nipple there is a 4 mm cyst. No suspicious masses to suggest hollis gnancy. IMPRESSION: 1. No evidence for malignancy in either breast. 2. Routine yearly screening mammogram and regular clinical breast examination are recommended. BI-RADS Category 2: Benign finding(s). Reviewed, dictated and finalized at location A. IMPRESSION: 1. No evidence for malignancy in either breast. 2. Routine yearly screening mammogram and regular clinical breast examination a re recommended. BI-RADS Category 2: Benign finding(s).
--- OUTSIDE RECORDS SUMMARY | 2025-04-23 09:34 | XMS_ITS | Clinical Summary ---
Author Organization [facility] Address [address] [place] [address] Care Team Providers Care Jack Setter Name Role Phone Lashell Gupta MD Unavailable [phone] Cookie Rodriguez MD Primary Care Provider [phone] Source Comments [facility],non-owned Affiliates and Associated Physician Practices is amultiple site organization consisting of ambulatory clinics and hospital sitesin [place], [place], [place] and [place]. This disclosure is being madepursuant to the Care Everywhere program and may not contain all information available regarding this patient. Last updated 18.[facility] Allergies Active Allergy Reactions Criticality Noted Date Comments Amoxicillin Trihydrate Rash Low 02/23/2012 Penicillins 11/29/2017 Medications * Be aware that medications may not be up to date on this document. Alwaysverify current medications with the patient. albuterol HFA (VENTOLIN HFA) 108 (90 BASE) MCG/ACT inhaler Inhale 2 puffs by mouth every 6 hours as needed for Wheezing or Cough 1 Inhaler 11/29/2017 Active Active Problems Problem Noted Date Diagnosed Date Genital herpes 08/07/2013 Bipolar disorder 08/07/2013 Overview (08/07/2013): Type 1 ADHD (attention deficit hyperactivity disorder) 08/07/2013 Posttraumatic stress disorder 08/07/2013 Immunizations Immunization Administration Dates Next Due TDAP (7yrs+) 02/23/2012 Social History Tobacco Use Types Packs/Day Years Used Date Smoking Tobacco: Never Smokeless Tobacco: Never Alcohol Use Standard Drinks/Week Comments Yes 1.7 (1 standard drink = 0.6 oz p ure alcohol) Comments No Sex and Gender Information Value Date Recorded Sex Assigned at Not on file Legal Sex Female 1:19 PM ART MODEL Gender Identity Not on file Sexual Orientation Not on file Last Filed Vital Signs Vital Sign Reading Time Taken Comments Blood Pressure 120/78 11/29/2017 3:21 PM ART MODEL Pulse 100 11/29/2017 3:21 PM ART MODEL Temperature 37.9 C (100.3 F) 11/29/2017 3:21 PM ART MODEL Respiratory Rate 20 11/29/2017 3:21 PM ART MODEL Oxygen Saturation 99% 11/29/2017 3:21 PM ART MODEL Inhaled Oxygen Concentration - - Weight 78 kg (172 lb) 11/29/2017 3:21 PM ART MODEL Height 170.2 cm (5' 7) 11/29/2017 3:21 PM ART MODEL Body Mass Index 26.94 11/29/2017 3:21 PM ART MODEL Plan of Treatment Health Maintenance Due Date Last Done Comments HIV SCREENING 2003 HEPATITIS C SCREENING 05/28/2006 HEPATITIS B VACCINE (1 of 3 - 19+ 3-dose series) 2007 PAP SMEAR 01/25/2015 01/25/2012, 01/25/2012 DTAP/TDAP/TD VACCINES (2 - T d or Tdap) 02/22/2022 02/23/2012 COVID-19 VACCINE ( - 2023-2 5 season) 2024 INFLUENZA VACCINE (Season Ended) 2025 ZOSTER VACCINE (1 of 2) 2038 HIB VACCINE Aged Out No longer eligi ble based on patient's age to complete this topic HPV VACCINE Aged Out No longer eligi ble based on patient's age to complete this topic MENINGOCOCCAL (Group B) VACCINE SHARED DECISION-MAKING Aged Out No longer eligible based on patient's age to complete this topic MENINGOCOCCAL GROUPS A/C/Y/W VACCINE Aged Out No longer eligible b ased on patient's age to complete this topic PNEUMOCOCCAL VACCINE Aged Out No long er eligible based on patient's age to complete this topic Insurance [employer] Care Teams Jack Setter Relationship Specialty Start Date End Date Cookie Rodriguez MD PCP - General Internal Medicine 08/07/13 Lashell Gupta MD Psychiatry 08/07/13
--- OUTSIDE RECORDS SUMMARY | 2025-04-23 09:34 | XMS_ITS | Referral Summary ---
Author Organization [facility] Address [address] [place] [phone] Care Team Providers Care Accounting Machine Mechanic Name Role Phone Micheal Leslie MD Primary Care Provider [phone] Keith Palacios MD Unavailable [phone] Allergies Active Allergy Reactions Criticality Noted Date Comments Amoxicillin Other (See comments) Low Reaction: Rash, , Penicillins Other (See comments) Low Reaction: Rash, , Medications multivitamin capsule Take 1 capsule by mouth daily Active escitalopram (LEXAPRO) 10 mg tablet 4 Active Wegovy 0.5 mg/0.5 mL auto-injector INJECT 1/2 (ONE-HALF) ML SUBCUTANEOUSLY ONCE A WEEK 4 Active ferrous sulfate 325 mg (65 mg of elemental iron) tabletIndicati ons:Iron Deficiency Anemia Take 1 tablet (325 mg total) by mouth daily with breakfast 30 tablet 4 025 Active Active Problems Problem Noted Date Diagnosed Date Encounter for medical examination to establish c are 10/03/2023 Assessment & Plan (10/03/2023 9:52 AM WATER LEAK REPAIRER): A(n) initial well visit to establish care has been performed today. Isa Tom is not up to date on screening tests. She is in need of Cholesterol screening. She is not up to date on needed preventative vaccinations; She is in need of Influenza. We discussed healthy lifestyle habits, educational material has been given. Medications reviewed, changes documented as per the medical record and discussed with patient along with risks vs benefits. Return in 1 year Heterozygous MTHFR mutation [id number] 01/02/2020 History of section 12/10/2019 Endometriosis 08/04/2017 ADHD (attention deficit hyperactivity disorder) 08/07/2013 Bipolar disorder 08/07/2013 Overview (10/31/2024): Type 1 Genital herpes 08/07/2013 Posttraumatic stress disorder 08/07/2013 Resolved Problems Problem Noted Date Diagnosed Date Resolved Date Hx of preeclampsia, prior pr egnancy, currently 01/02/2020 08/08/2020 Rh negative state in antepartum period 01/02/2020 08/08/2020 Thrombophilia affecting preg phillip in second trimester, antepartum 01/02/2020 08/08/2020 Vomiting during 07/02/2016 High-risk 06/18/2016 08/08/20 20 Monochorionic diamniotic twin 06/18/2016 12/10/2019 Threatened miscarriage 06/04/201612/10 , twins 05/22/2016 01/02/2020 Ovarian retention cyst 12/04/201512/10 Severe preeclampsia 01/02/20 20 Overview (09/29/2018): in prior mono-di Immunizations Immunization Administration Dates Next Due Hep B Vaccine 11/27/1997 Influenza, Quadrivalent, Lillian l Culture-based MDCK, Preservative Free, Antibiotic Free, Intramuscular 09/06/2022 Influenza, Quadrivalent, Spl it, Preservative Free, Intradermal 09/14/2016 Influenza, Quadrivalent, Spl it, Preservative Free, Intramuscular 10/03/2023,10/23/2021,09/01/2020,09/09 Influenza, Trivalent, Preser vative Free, Intramuscular 12/16/2017 Influenza, Unspecified 08/27/2024,08/27/2023, Sars-CoV-2, Unspecified 07/28/2022,09/27,02/25/2021,01/25 Tdap 04/23/2020,,11/09/2016,02/22 Social History Tobacco Use Types Packs/Day Years Used Date Smoking Tobacco: Never Smokeless Tobacco: Never Alcohol Use Standard Drinks/Week Comments Yes 0 (1 standard drink = 0.6 oz pur e alcohol) occasionally AUDIT-C Answer Date Recorded Q1: How often do you have a drink containing alcohol? Never 10/31/2024 Q2: How many drinks containi ng alcohol do you have on a typical day when you are drinking? Patient does not drink Q3: How often do you have si x or more drinks on one occasion? Never 10/31/2024 PHQ-2 Answer Date Recorded PHQ-2 Total Score (If total score is 3 or more points, staff should administer the PHQ-9) 0 10/31/2024 Marshall Depression Scale Answer Date Recorded Marshall Depression Scale Total 0 08/08/2020 The thought of harming myself has occurred to me . 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 Not on file Not on file Not o n file Last Filed Vital Signs Vital Sign Reading Time Taken Comments Blood Pressure 116/84 10/31/2024 1:34 PM WATER LEAK REPAIRER Pulse 79 10/31/2024 1:34 PM WATER LEAK REPAIRER Temperature 36 C (96.8 F) 10/31/2024 1:34 PM WATER LEAK REPAIRER Respiratory Rate 14 10/31/2024 1:34 PM WATER LEAK REPAIRER Oxygen Saturation 99% 10/31/2024 1:34 PM WATER LEAK REPAIRER Inhaled Oxygen Concentration - - Weight 74.4 kg (164 lb) 10/31/2024 1:34 PM WATER LEAK REPAIRER Height 170.2 cm (5' 7) 10/31/2024 1:34 PM WATER LEAK REPAIRER Body Mass Index 25.69 10/31/2024 1:34 PM WATER LEAK REPAIRER Plan of Treatment Not on file Medical Devices Implanted Type Area Extractor Machine Operator Device Identifier Shelf Expiration Date Model / Serial / Lot [employer] [id number] Seprafilm 6x5in Barrier Adhesion Sterile Disposable Latex Free - [id number] Implanted:Qty: 1 on 06/26/2020 by Manohar Munoz MD at [facility] [employer] [id number] 09/27/2022 [id number] / / [id number] Procedures Procedure Name Priority Date/Time Associated Diagnosis Comments PAP AND HIGH RISK HPV, REFLEX TO GENOTYPING Routine 08/08/2020 9:20 AM CDT follow-up HEPATITIS C ANTIBODY Routine 12/10/2019 1:19 PM WATER LEAK REPAIRER from Last 3 Months or Most Recently Relevant to Health Maintenance Results * Pap and High Risk HPV, reflex to Genotyping (08/08/2020 9:20 AM CDT) Swab 08/08/2020 9:20 AM CDT 08/22/2020 12:44 PM CDT Narrative PATHOLOGY [facility] - 08/28/2020 10:30 AM CDT [address] [address] Tele: Kacie Johnson MD - Tongue Carrier CYTOLOGY REPORT Patient Name: ISA TOM Address: [address] [place] [address] Gender: F : 1990 (Age: 30) Service: Laboratory Location: Lab [facility] #: [id number] Patient Type: [facility] Lab Taken: 08/08/2020 Received: 08/22/2020 Reported: 08/28/2020 Physician(s): MARY Redding M.D. FINAL DIAGNOSIS: Specimen Type: - ThinPrep Pap and HPV w/ reflex Genotyping Statement of Specimen Adequacy: Source: Cervical/Endocervical - Satisfactory for interpretation - Endocervical /Transformation Zone component present - Case screened using computer assisted imaging technology General Categorization: - Negative for intraepithelial lesion or malignancy jxm/08/28/2020 10:30 SULY Hill (ASCP) Report Reviewed and Electronically Signed By SULY Hill (ASCP) Clerical Data Follow A; 08496 DIAGNOSIS COMMENT: Ancillary Testing: HPV High Risk Group (16, 18, 31, 33, 35, 39, 45, 51, 52, 56, 58, 59, 66 and 68) - Not Detected Reference Range: Not Detected This test was performed using the EHSAN 4800 CLINICAL DIAGNOSIS AND HISTORY Last Menstrual Period: POST 09/26/19 Menstrual History: REPORT IMAGES AND/OR SCANNED DOCUMENTS ONLY VIEWABLE IN PDF FORMAT The Pap test is a screening test used to aid in the detection of cervical cancer and its precursors. It should not be the sole means by which malignant and premalignant lesions are diagnosed. Both false negative and false positive results may occur. It also has poor sensitivity for the detection of endometrial lesions and should not be used to evaluate suspected endometrial abnormalities. For these reasons it is most important to obtain Pap tests at regular intervals, as recommended by your physician or nurse practitioner. Isa Mobley NP LAB CYTOLOGY ORDERABLES Final Result Performing Organization Address City/[facility]/ZIP Co de Phone Number PATHOLOGY [facility] Laboratory Receiving [address] [place] [address] * Hepatitis C antibody (12/10/2019 1:19 PM WATER LEAK REPAIRER) Hep C Ab Non-Reactiv e Non-Reactiv e [facility] Blood specimen (specimen) 12/10/2019 1:19 PM WATER LEAK REPAIRER 12/10/2019 3:22 PM WATER LEAK REPAIRER Manohar Munoz MD LAB MICROBIOLOGY - GENERAL OR DERABLES Final Result Performing Organization Address City/[facility] Co de Phone Number [facility] [address] [place] [address] from Last 3 Months or Most Recently Relevant to Health Maintenance Insurance [employer] ACCESS CHOICE CIGNA OPEN ACCESS CIGNA OPEN ACCESS CIGNA OPEN ACCESS Advance Directives For more information, please contact: [phone] * Full Code (Latest Code Status on File) Date Activated Date Inactivated Comments 06/26/2020 5:44 PM 06/29/2020 2:22 PM * Full Code Date Activated Date Inactivated Comments 06/26/2020 10:08 AM 06/26/2020 5:44 PM Full CPR in case of cardiopulmonary arrest * Full Code Date Activated Date Inactivated Comments 10/09/2019 8:09 AM 10/10/2019 4:40 AM Care Teams Accounting Machine Mechanic Relationship Specialty Start Date End Date Micheal Leslie MD [address] [facility] [address] [place] [address] PCP - General Family Medicine 10/03/23 Keith Palacios MD [address] [place] [address] Referring Physician Obstetrics and Gynecology 10/31/24
--- OUTSIDE RECORDS SUMMARY | 2025-04-23 09:34 | XMS_ITS | Clinical Summary ---
Author Organization [facility] Address [address] [place] [phone] Care Team Providers Care Project Manager Name Role Phone Micheal Leslie MD Primary Care Provider [phone] Keith Palacios MD Unavailable [phone] Allergies Active Allergy Reactions Criticality Noted Date [...] 10/03/2023 Assessment & Plan (10/03/2023 9:52 AM PREPARED FOODS SUPERVISOR): A(n) initial well visit to establish care [...] Return in 1 year Heterozygous MTHFR mutation [id number] 01/02/2020 History of section 12/10/2019 Endometriosis 08/04/2017 [...] Unspecified 08/27/2024,08/27/2023, Sars-CoV-2, Unspecified 07/28/2022,09/27,02/25/2021,01/25 Tdap 04/23/2020,,11/09/2016,02/22 Surgical History Surgery Date Site/Laterality Comments SECTION 11/28/2015 - 11/27/2016 : TONSILLECTOMY 11/28/1992 - 11/27/1993 Medical History Medical History Date Comments Hx Other Medical manag ement; Comments: twins, section, preeclampsia, PTL,; Outcome: Live infant Severe preeclampsia in prior mon o-di Endometriosis Family History Medical History Relation Name Comments No Known Problems Father Heart attack Maternal Grandfather No Known Problems Maternal Grandmother Hypertension Mother No Known Problems Paternal Grandfather Polycystic kidney disease Paternal Grandmother Relation Name Status Comments Father Alive Maternal Grandfather Maternal Grandmother Mother Alive Paternal Grandfather Paternal Grandmother Social History Tobacco Use Types Packs/Day Years [...] staff should administer the PHQ-9) 0 10/31/2024 [place] Depression Scale Answer Date Recorded [place] Depression Scale Total 0 08/08/2020 The thought of harming myself has occurred to me . 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 Not on file Not o n file Obstetrics History Para Term AB IAB SAB Ectopic Multiple Livin g Live Births 3 1 1 1 1 2 2 Date Outcome GA Total Labor Labor/2nd/3rd Weight Sex Type Anes PTL Melinda A1 A5 Name Clin 2015 32w 0d CS-LT ranv Living 2015 32w 0d CS-LT ranv Living 2017 AB Comments G1- 11/19/16 - PT C/S at 32w eeks, of mono-di TIUP, indication: severe pre- eclampsia and PTL, delivered two live borns - conceived via IVF G2- abnormal SAB, conceived via 1D5 FET, Last Filed Vital Signs Vital Sign Reading Time Taken Comments Blood Pressure 116/84 10/31/2024 1:34 PM PREPARED FOODS SUPERVISOR Pulse 79 10/31/2024 1:34 PM PREPARED FOODS SUPERVISOR Temperature 36 C (96.8 F) 10/31/2024 1:34 PM PREPARED FOODS SUPERVISOR Respiratory Rate 14 10/31/2024 1:34 PM PREPARED FOODS SUPERVISOR Oxygen Saturation 99% 10/31/2024 1:34 PM PREPARED FOODS SUPERVISOR Inhaled Oxygen Concentration - - Weight 74.4 kg (164 lb) 10/31/2024 1:34 PM PREPARED FOODS SUPERVISOR Height 170.2 cm (5' 7) 10/31/2024 1:34 PM PREPARED FOODS SUPERVISOR Body Mass Index 25.69 10/31/2024 1:34 PM PREPARED FOODS SUPERVISOR Plan of Treatment Health Maintenance Due Date Last Done Comments Cervical Cancer Screening 08/08/2021 08/08/2020 Covid-19 Vaccine ( season) 2024 11/05/2023, 09/06/2022, 07/28/2022, Additional history exists Depression Screening 10/31/2025 10/31/2024, 10/11/2023, 10/03/2023, Additional history exists Regular Well Visit/Exam 18-64 10/31/2025 10/31/2024, 10/03/2023 Varicella Vaccines (1 of 2 - 13+ 2-dose series) 11/04/2025 Postponed from 2001 (Patient declined, but will receive in the future) DTaP/Tdap/Td Vaccine (5 - Td or Tdap) 04/23/2030 04/23/2020, 04/22/2020, 11/09/2016, Additional history exists Hepatitis B Screening Completed 11/27/1997 Hepatitis C Screening Completed 12/10/2019, 019 Influenza Vaccine Completed 08/27/2024, , 08/27/2023, Additional history exists HPV Vaccines Aged Out No longer eligi ble based on patient's age to complete this topic Pneumococcal vaccine <65 Aged Out No longer eligible based on patient's age to complete this topic Medical Devices Implanted Type Area Events Solutions Consultant Device Identifier Shelf Expiration Date Model / Serial / Lot GenAtlassian Biosur[employer] [id number] Seprafilm 6x5in Barrier Adhesion Sterile Disposable Latex Free - [id number] Implanted:Qty: 1 on 06/26/2020 by Manohar Munoz MD at [facility] [employer] [id number] 09/27/2022 [id number] / / [id number] Procedures Procedure Name Priority Date/Time Associated Diagnosis Comments PAP AND HIGH RISK HPV, REFLEX TO GENOTYPING Routine 08/08/2020 9:20 AM CDT follow-up HEPATITIS C ANTIBODY Routine 12/10/2019 1:19 PM PREPARED FOODS SUPERVISOR from Last 3 Months or Most Recently Relevant to Health Maintenance Results * Pap and High Risk HPV, reflex to Genotyping (08/08/2020 9:20 AM CDT) Swab 08/08/2020 9:20 AM CDT 08/22/2020 12:44 PM CDT Narrative PATHOLOGY [facility] - 08/28/2020 10:30 AM CDT [address] [address] Tele: Kacie Johnson MD - Orthotics Prosthetics Assistant CYTOLOGY REPORT Patient Name: ISA TOM Address: [address] [place] [address] Gender: F : 1990 (Age: 30) Service: Laboratory Location: Lab [facility] #: [id number] Patient Type: [facility] Lab Taken: 08/08/2020 Received: 08/22/2020 Reported: 08/28/2020 [...] SULY Hill (ASCP) Clerical Data Follow A; 40[address] DIAGNOSIS COMMENT: Ancillary Testing: HPV High Risk [...] Mobley NP LAB CYTOLOGY ORDERABLES Final Result PATHOLOGY [facility] Laboratory Receiving [address] [place] [address] * Hepatitis C antibody (12/10/2019 1:19 PM PREPARED FOODS SUPERVISOR) Hep C Ab Non-Reactiv e Non-Reactiv e [facility] Blood specimen (specimen) 12/10/2019 1:19 PM PREPARED FOODS SUPERVISOR 12/10/2019 3:22 PM PREPARED FOODS SUPERVISOR Manohar Munoz MD LAB MICROBIOLOGY - GENERAL OR DERABLES Final Result Performing Organization Address City/[facility]/ZIP Co de Phone Number [facility] [address] [place] [address] from Last 3 Months or Most Recently Relevant to Health Maintenance Insurance [employer] ACCESS CHOICE Member Subscriber Plan / Payer (Ef fective 2016-Present) Name:Isa Tmo Relation to Subscriber:Spouse Name:KOCHARI Date of :1983 (Home) Address: [address] [place] [id number] Payer ID:[id number] (NA) Type:[facility] Address: [address] OPEN ACCESS CIGNA OPEN ACCESS [employer] OPEN ACCESS Advance Directives For more information, please contact: [phone] * Full Code (Latest Code Status on File) Date Activated Date Inactivated Comments 06/26/2020 5:44 PM 06/29/2020 2:22 PM * Full Code Date Activated Date Inactivated Comments 06/26/2020 10:08 AM 06/26/2020 5:44 PM Full CPR in case of cardiopulmonary arrest * Full Code Date Activated Date Inactivated Comments 10/09/2019 8:09 AM 10/10/2019 4:40 AM Care Teams Project Manager Relationship Specialty Start Date End Date Micheal Leslie MD [address] [facility] [address] [place] [address] PCP - General Family Medicine 10/03/23 Keith Palacios MD [address] [facility] [address] [facility] [address] [place] [address] Referring Physician Obstetrics and Gynecology 10/31/24
--- OUTSIDE RECORDS SUMMARY | 2025-04-23 09:34 | XMS_ITS | Data Portability ---
Author Organization [facility] [place] Address [address] [place] [address] Care Team Providers Care Form Coverer Name Role Phone CHEPE RUCKER Primary Care Provider Unavailab le Assessment No assessment recorded. Plan of Treatment Reminders Order Date Submit Date Provider Last Modified By Organization Details Last Modified Time Details Appointments ANY 15 2024 01:00P M RALEIGH Sepulveda Not available Not available Not available Lab CMP, serum or plasma 2024 025 [employer] [facility], [address], [place], [address], 03/11/2025 09:15:21 vitamin B12 + folate, serum or blood 2024 025 [employer] [facility], [address], [place], [address], 03/11/2025 09:15:21 HbA1c (hemoglo bin A1c), blood 2024 025 [employer] [facility], [address], [place], [address], 03/11/2025 09:15:21 CBC w/ auto diff 2024 025 [employer] [facility], [address], [place], [address], 03/11/2025 09:15:21 iron + TIBC + ferritin , serum 2024 025 [employer] [facility], [address], [place], [address], 03/11/2025 09:15:21 Referral None recorded . Procedures None recorded . Surgeries None recorded . Imaging None recorded . Medication Orders None recorded . Patient TargetsNo targets recorded. Patient InstructionsNo instructions recorded. Reason for Referral None Reported. Problems Name Problem SNOMED Code Status Onset Date Resolution Date Notes Provider Name and Address Organization Details Recorded Time Body mass index 25-29 - overweight 055247682 Active 2024 HILARIO [place], [place] - [place] 12:10:25 Iron deficiency anemia 23476993 Active 2024 RALEIGH Sepulveda Attn: Accountin g,[address] [place], [address], [facility] - [facility] 5 21:11:25 Long-term drug therapy Active 2024 RALEIGH Sepulveda Attn: Accountin g,[address] [place], [address], [facility] - [facility] 5 21:11:27 Weight maintenance regimen 24627440 Active 2024 RALEIGH Sepulveda Attn: Accountin g,[address] [place], [address], [facility] - [facility] 5 21:11:28 Problem Notes None recorded. Procedures Surgical History Date Name Laterality Status Provider Name and Address Organization Details Recorded Time section completed Gemma Bautista [place] 12/10/2024 14:07:46 Imaging Results None recorded. Procedure Notes None recorded. Medical Equipment None Reported. Allergies Allergen ID Allergen Name Allergen Category Reaction Reaction Severity Criticality Documentation Date Start Date Code Code System Note Provider Name and Address Organization Details Recorded Time 816754 amoxicill in medicatio n Not available Not available Not available 12/10/2024 723 [employer] HILARIO [place], [place] - [place] 12:06:09 452647 Product containin g penicilli n (product) medicatio n Not available Not available Not available 12/10/2024 56623 8001 SNOMED Gemma Bautista MA [facility], [place] - [facility] 12:06:15 Medications Name Sig Start Date Stop Date Status Note LastModified by Organization Details LastModified Time valacyclov ir 1 gram tablet TAKE 2 TABLETS BY MOUTH EVERY 12 HOURS FOR 1 DAY NEEDED FOR FLARE UP active Not Available Not Available No t Available doxycyclin e hyclate 50 mg capsule Take by oral route for 30 days. 12/10 completed Not Available Not Available Not Available pimecrolim us 1 % topical cream APPLY TOPICALL Y TO FACE TWICE DAILY 12/10 completed Not Available Not Available Not Available promethazi ne 25 mg tablet TAKE 1/2 TO 1 TABLET BY MOUTH EVERY 12 HOURS NEEDED FOR NAUSEA 12/10 completed Not Available Not Available Not Available escitalopr am 10 mg tablet TAKE 1 TABLET BY MOUTH DAILY 12/10 completed Not Available Not Available Not Available escitalopr am 20 mg tablet Take 1 tablet every day by oral route for 90 days. active Not Available Not Available No t Available FeroSul 325 mg (65 mg iron) tablet Take 1 tablet every day by oral route for 30 days. active pt is taking this Not Available Not Available Not Available Wegovy 0.5 mg/0.5 mL subcutaneo us pen injector INJECT 1/2 (ONE-JOSIAS F) ML SUBCUTAN EOUSLY ONCE A WEEK active Not Available Not Available No t Available Zepbound 5 mg/0.5 mL subcutaneo us pen injector ADMINIST ER 5 MG UNDER THE SKIN WEEKLY 12/10 completed Not Available Not Available Not Available Zepbound 2.5 mg/0.5 mL subcutaneo us pen injector ADMINIST ER 2.5 MG UNDER THE SKIN WEEKLY FOR 4 WEEKS 12/10 completed Not Available Not Available Not Available Vitals Date Recorded Systolic And Diastolic Provider Name and Address Organization Details Last Updated DateTime 12/10/2024 110/80 mm[Hg] RALEIGH Sepulveda Attn: Accounting,[address] [place], [address], [place] - [facility] 12/10/2024 12:35:53 Date Recorded Body weight Respiratory rate Body mass index (BMI) Body height Oxygen saturation Oxygen saturation in Arterial blood by Pulse oximetry Heart rate Systolic And Diastolic Provider Name and Address Organization Details Last Updated DateTime 5 77494.9 6 g 18 /min 25.4 kg/m2 170.18 cm 100 % 100 % 92 /min 126/82 mm[Hg] Gemma Bautista [place] - [facility] 12:11:41 Social History Question Answer Notes LastModified by Organizat ion Details LastModified Time Tobacco Smoking Status Never Smoker Gemma Bautista MA null, [facility] 12/10/2024 12:09:08 Do You Have An Advance Directive? Yes Will Information not available 12/10/2024 Are You Blind Or Do You Have Difficulty Seeing? No Glasses/co ntacts Information not available 12/10/2024 What Is Your Level Of Caffeine Consumption? Occasional Information not available 12/10/2024 In The 14 Days Before Symptom Onset, Have You Had Close Contact With A Laboratory-confir med COVID-19 While That Case Was Ill? No Information not available 12/10/2024 In The 14 Days Before Symptom Onset, Have You Had Close Contact With A Person Who Is Under Investigation For COVID-19 While That Person Was Ill? No Information not available 12/10/2024 Have You Been To An Area Known To Be High Risk For COVID-19? No Information not available 12/10/2024 Are You Deaf Or Do You Have Serious Difficulty Hearing? No Information not available 12/10/2024 What Type Of Diet Are You Following? REGULAR Information not available 12/10/2024 Are There Any Guns Present In Your Home? No Information not available 12/10/2024 What Was The Date Of Your Most Recent Tobacco Screening? 12/10/2024 Information not available 12/10/2024 What Is Your Relationship Status? Information not available 12/10/2024 Do You Use Your Seat Belt Or Car Seat Routinely? Yes Information not available 12/10/2024 Do You Have Smoke And Carbon Monoxide Detectors In Your Home? Yes Information not available 12/10/2024 Do You Use Sunscreen Routinely? No In The Summer Information not available 12/10/2024 Has Tobacco Cessation Counseling Been Provided? No Information not available 12/10/2024 Sex: Female Functional Status Question Answer Note LastModified by Organizat ion Details LastModified Time Do you use any illicit or recreational drugs? No Information not available 12/10/2024 Do you or have you ever used any other forms of tobacco or nicotine? No Information not available 12/10/2024 What is your level of alcohol consumption? None Information not available 12/10/2024 Are you currently employed? Yes Information not available 12/10/2024 Are you able to care for yourself? 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 Moderate Information not available 12/10/2024 Mental Status None recorded. Family History Relationship Description Onset Age of this Age Resolved Age Notes LastModified by Organization Details LastModified Time Mother Hypertensive disorder [email or web address] Not available 2024 14:07:55 Medical History Condition Response Coronary Artery Disease N Other N High Blood Pressure N Atrial Fibrillation N Kidney or Bladder Problems N Thyroid Problems N GI Problems N Depression N COPD N Blood Clots N Have you had a mammogram in the last yea r? N Skin Problems N Anemia N Heart Attack ([place]) N Anxiety Disorder N Diabetes N Muscle, Joint, or Bone Problems N Seizures/Epilepsy N Have you had a colonoscopy in the last 1 0 years? N Acid Reflux (GERD) N Cancer N Stroke N Asthma N Allergies N Have you had a PSA blood test in the las t year? N High Cholesterol N Hepatitis N Liver Disease N Headaches N Heart Failure N Osteoporosis N Gynecological History Statement/Question Response Menses Monthly Y Duration of Flow (days) 4 Flow Moderate Date of LMP 11/23/2024 LMP Approximate Obstetrics History GPAL:G 3 P 1 2 1 3 Type Value Multiple Births 1 Full Term 1 Induced 0 Spontaneous 1 Premature 2 Living 3 Ectopics 0 Total 3 Immunizations Vaccine Type Date Status Note Provider Nam e and Address Organization Details Recorded Time Influenza, MDCK, quadrivalent, PF 09/06/2022 completed Gemma Bautista [place], [place] [facility] 12/10/2024 12:09:14 COVID-19, mRNA, LNP-S, PF, 30 mcg/0.3 mL dose 01/27/2021 completed Gemma Batuista [place], [place] [facility] 12/10/2024 12:09:14 COVID-19, mRNA, LNP-S, PF, 30 mcg/0.3 mL dose 02/17/2021 completed Gemma Baut[place], [place] [facility] 12/10/2024 12:09:14 COVID-19, mRNA, LNP-S, PF, 30 mcg/0.3 mL dose 10/23/2021 completed Gemma [place] [facility] 12/10/2024 12:09:14 COVID-19, mRNA, LNP-S, bivalent, PF, 30 mcg/0.3 mL dose 09/06/2022 completed Gemma [place]aut[place] [facility] 12/10/2024 12:09:14 COVID-19, mRNA, LNP-S, PF, kalli-sucrose, 30 mcg/0.3 mL 11/05/2023 completed Gemma Baut[place] [facility] 12/10/2024 12:09:14 influenza, unspecified formulation 08/27/2024 completed Gemma [place] [facility] 12/10/2024 12:09:14 Tdap 04/23/2020 completed Gemma [place] [facility] 12/10/2024 12:09:14 Influenza, split virus, trivalent, PF 12/16/2017 completed Gemma [place] [facility] 12/10/2024 12:09:14 Influenza, split virus, quadrivalent, PF 09/01/2020 completed Gemma [place] [facility] 12/10/2024 12:09:14 Influenza, split virus, quadrivalent, PF 09/09/2018 completed Gemma [place] [facility] 12/10/2024 12:09:14 Influenza, split virus, quadrivalent, PF 10/03/2023 completed HILARIO [place] - [facility] 12/10/2024 12:09:14 Influenza, split virus, quadrivalent, PF 10/23/2021 completed HILARIO [place], [place] 12/10/2024 12:09:14 Past Encounters Encounter ID Performer Location Encounter Start Date Encounter Closed Date Diagnosis/Indication Diagnosis SNOMED-CT Code Diagnosis ICD10 Code Diagnosis Note [id number] Manohar Pantoja MD [facility] - Juliana Miller [address] [place] [address] 12/10/2024 11:38:56 12/10/2024 13:05:44 Body mass index 25-29 - overweight 796071308 Z68.25 BMI is 25.4 Adult heal th examination 392818609 Z00.00 Annual wellness exam completed. Labs are up-to-date from previous PCP and reviewed on her [employer] portal today Weight vicki ntenance regimen 47819670 Z71.3 Patient has had much success on Wegovy therapy she is currently taking Wegovy 0.5 mg weekly dosing for maintenanc e Long-term drug therapy 679264205 Z79.891 Routine CMP, B12 and folate will be due in February Diabetes m ellitus screening 901970894 Z13.1 A1c screening due in February Iron defic iency anemia 65893432 D50.9 History of iron deficiency anemia reported and updated CBC and iron studies will be done in February Health Concerns Section Related Observation LastModified by Organization Detai ls LastModified Time None Recorded Concern Status LastModified by Organization Details LastModified Time None Recorded Advance Directives Directive Y: will Payers Encounter Date Sequence Insurance Name Policy Number Policy Powell Covered Member ID Powell Member ID Guarantor Name 12/10/2024 1 [id number] Chari Tom [id number] Ruthie Tom Notes Date Note Type Note Provider Name and Address Organization Details Recorded Time 12/10/2024 text/html AnemiaReported bypatient.Notes:labs are UTD from previous PCP that she saw prior to coming here. On iron supplement due to iron deficiency from heavy menstrual cycles. Dr. Suzanne is gyne and she will f/u with them.Anxiety/Depress ionReported bypatient.Notes:Pt is taking lexapro 20mg daily for anxiety underlying related to health. Labs including cholesterol, sugar completed and viewed in pt's portal [employer] RALEIGH Sepulveda Attn: Accounting,[address] [place], [address], [place] [facility] 12/27/2024 21:12:06 OBGyn Episode No OBEpisode recorded.
--- OUTSIDE RECORDS SUMMARY | 2025-04-23 09:34 | XMS_ITS | Encounter Summary ---
Author Organization [facility] Address [address] [place] [address] Care Team Providers Care Project Manager Finance Name Role Phone Mercedes Goldberg Primary Care Pr ovider Micheal Leslie MD Primary Care Provider [phone] Keith Palacios MD Unavailable [phone] Encounter Details Date Type Department Care Team (Late st Contact Info) Description 07/04/2020 Documentation [facility] [address] [place] [address] Tosha Araujo, RN Social History Tobacco Use Types Packs/Day Years Used Date Smoking Tobacco: Never Smokeless Tobacco: Never Alcohol Use Standard Drinks/Week Comments Yes 0 (1 standard drink = 0.6 oz pur e alcohol) occasionally [place] Depression Scale Answer Date Recorded [place] Depression Scale Total 0 06/27/2020 The thought of harming myself has occurred to me . Never 06/27/2020 Comments Yes Sex and Gender Information Value Date Recorded Sex Assigned at Not on file Legal Sex Female 8:28 AM SALES SUPPORT ADMINISTRATOR Gender Identity Female 10/02/2023 5:39 PM SALES SUPPORT ADMINISTRATOR Sexual Orientation Lesbian 10/02/2023 5: 39 PM SALES SUPPORT ADMINISTRATOR documented as of this encounter Miscellaneous Notes * Note - Tosha Araujo, RN - 07/04/2020 9:21 AM CDT Returned phone call. No answer and unable to leave message. documented in this encounter Plan of Treatment Not on file documented as of this encounter Visit Diagnoses Not on filedocumented in this encounter Care Teams Project Manager Finance Relationship Specialty Start Date End Date Mercedes Goldberg PA PCP - General 10/18/18 10/02/23 Micheal Leslie MD [address] [facility] [address] [place] [address] PCP - General Family Medicine 10/03/23 Keith Palacios MD [address] [facility] [address] [place] [address] Referring Physician Obstetrics and Gynecology 10/31/24 documented as of this encounter
== END 2025-04-23 09:30 | disposition home or self-care (01) ==
LOC: CHSIMG 09:30
PROVIDERS: PCP Physician Assistant; Visit Provider Nurse Practitioner Obstetrics & Gynecology
DX: N64.4 Mastodynia (principal)
CPT/HCPCS: 76641; 77062; 77066; G0279

== ENCOUNTER 2025-06-11 08:58 | Outpatient (CLI) | payer OTHER, SELFPAY ==
--- OUTSIDE RECORDS SUMMARY | 2025-06-11 09:14 | XMS_ITS | Clinical Summary ---
Author Organization [facility] [facility] Address [address] [place] [address] Care Team Providers Care Airport Attendant Name Role Phone Lashell Gupta MD Unavailable [phone] Cookie Rodriguez MD Primary Care Provider [phone] Source Comments [facility],non-owned Affiliates and Associated Physician Practices is amultiple site organization consisting of ambulatory clinics and hospital sitesin [place], [place], [place] and [place]. This disclosure is being madepursuant to the Care Everywhere program and may not contain all information available regarding this patient. Last updated 18.[facility] Allergies Active Allergy Reactions Criticality Noted Date [...] on file Legal Sex Female 1:19 PM TRAINING PROFESSIONAL Gender Identity Not on file Sexual Orientation Not on file Last Filed Vital Signs Vital Sign Reading Time Taken Comments Blood Pressure 120/78 11/29/2017 3:21 PM TRAINING PROFESSIONAL Pulse 100 11/29/2017 3:21 PM TRAINING PROFESSIONAL Temperature 37.9 C (100.3 F) 11/29/2017 3:21 PM TRAINING PROFESSIONAL Respiratory Rate 20 11/29/2017 3:21 PM TRAINING PROFESSIONAL Oxygen Saturation 99% 11/29/2017 3:21 PM TRAINING PROFESSIONAL Inhaled Oxygen Concentration - - Weight 78 kg (172 lb) 11/29/2017 3:21 PM TRAINING PROFESSIONAL Height 170.2 cm (5' 7) 11/29/2017 3:21 PM TRAINING PROFESSIONAL Body Mass Index 26.94 11/29/2017 3:21 PM TRAINING PROFESSIONAL Plan of Treatment Health Maintenance Due Date Last Done Comments HIV SCREENING 2003 HEPATITIS C SCREENING 05/28/2006 HEPATITIS B VACCINE (1 of 3 - 19+ 3-dose series) 2007 PAP SMEAR 01/25/2015 01/25/2012, 01/25/2012 HPV VACCINE (1 - 3-dose SCDM series) 2015 DTAP/TDAP/TD VACCINES (2 - T d or Tdap) 02/22/2022 02/23/2012 COVID-19 VACCINE ( - 2023-2 5 season) 2024 INFLUENZA VACCINE (#1) 2025 ZOSTER VACCINE (1 of 2) 2038 [...] topic Insurance [employer] Care Teams Airport Attendant Relationship Specialty Start Date End Date Cookie Rodriguez MD PCP - General Internal Medicine 08/07/13 Lashell Gupta MD Psychiatry 08/07/13
--- OUTSIDE RECORDS SUMMARY | 2025-06-11 09:14 | XMS_ITS | Clinical Summary ---
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 on file Not on file Not [...] Comments Blood Pressure 116/84 10/31/2024 1:34 PM COMPOSITION TILE LAYER Pulse 79 10/31/2024 1:34 PM COMPOSITION TILE LAYER Temperature 36 C (96.8 F) 10/31/2024 1:34 PM COMPOSITION TILE LAYER Respiratory Rate 14 10/31/2024 1:34 PM COMPOSITION TILE LAYER Oxygen Saturation 99% 10/31/2024 1:34 PM COMPOSITION TILE LAYER Inhaled Oxygen Concentration - - Weight 74.4 kg (164 lb) 10/31/2024 1:34 PM COMPOSITION TILE LAYER Height 170.2 cm (5' 7) 10/31/2024 1:34 PM COMPOSITION TILE LAYER Body Mass Index 25.69 10/31/2024 1:34 PM COMPOSITION TILE LAYER Plan of Treatment Health Maintenance Due Date [...] this topic Medical Devices Implanted Type Area Concrete Bucket Unloader Device Identifier Shelf Expiration Date Model / Serial / Lot [employer] [id number] Seprafilm 6x5in Barrier Adhesion Sterile Disposable Latex Free - [id number] Implanted:Qty: 1 on 06/26/2020 by Manohar Munoz MD at [facility] [employer] [id number] 09/27/2022 [id number] / / [id number] Procedures Procedure Name Priority Date/Time Associated Diagnosis Comments PAP AND HIGH RISK HPV, REFLEX TO GENOTYPING Routine 08/08/2020 9:20 AM CDT follow-up HEPATITIS C ANTIBODY Routine 12/10/2019 1:19 PM COMPOSITION TILE LAYER from Last 3 Months or Most Recently Relevant to Health Maintenance Results * Pap and High Risk HPV, reflex to Genotyping (08/08/2020 9:20 AM CDT) Swab 08/08/2020 9:20 AM CDT 08/22/2020 12:44 PM CDT Narrative PATHOLOGY [facility] - 08/28/2020 10:30 AM CDT [address] [address] Tele: Kacie Johnson MD - Dental Manager CYTOLOGY REPORT Patient Name: ISA TOM Address: [address] [place] [address] Gender: F : 1990 (Age: 30) Service: Laboratory Location: Lab [facility] #: [id number] Patient Type: [facility] Lab Taken: 08/08/2020 Received: 08/22/2020 Reported: [...] SULY Hill (ASCP) Clerical Data Follow A; 83784 DIAGNOSIS COMMENT: Ancillary Testing: HPV High Risk [...] NP LAB CYTOLOGY ORDERABLES Final Result PATHOLOGY [facility] Laboratory Receiving [address] [place] [address] * Hepatitis C antibody (12/10/2019 1:19 PM COMPOSITION TILE LAYER) Hep C Ab Non-Reactiv e Non-[facility]activ e [facility] Blood specimen (specimen) 12/10/2019 1:19 PM COMPOSITION TILE LAYER 12/10/2019 3:22 PM COMPOSITION TILE LAYER Manohar Munoz MD LAB MICROBIOLOGY - GENERAL OR DERABLES Final Result Performing Organization Address City/[facility]/ZIP Co de Phone Number [facility] [address] Department [place] [address] from Last 3 Months or Most Recently Relevant to Health Maintenance Insurance ANTHEM ACCESS CHOICE Member Subscriber Plan / Payer (Ef fective 2016-Present) Name:Isa Tom Relation to Subscriber:Spouse Name:KOCHARI Date of :1983 (Home) Address: [address] [place] [id number] Payer ID:[id number] (NA) Type:[facility] Address: [address] OPEN ACCESS CIGNA OPEN ACCESS CivicSolarCHARLA OPEN ACCESS Advance Directives For more information, please contact: [phone] * Full Code (Latest Code Status on File) Date Activated Date Inactivated Comments 06/26/2020 5:44 PM 06/29/2020 2:22 PM * Full Code Date Activated Date Inactivated Comments 06/26/2020 10:08 AM 06/26/2020 5:44 PM Full CPR in case of cardiopulmonary arrest * Full Code Date Activated Date Inactivated Comments 10/09/2019 8:09 AM 10/10/2019 4:40 AM Care Teams Program Evaluation Consultant Relationship Specialty Start Date End Date Micheal Leslie MD 2 [facility] [address] [place] [address] PCP - General Family Medicine 10/03/23 Keith Palacios MD [address] [facility] [address] [facility] [address] [place] [address] Referring Physician Obstetrics and Gynecology 10/31/24
--- OUTSIDE RECORDS SUMMARY | 2025-06-11 09:14 | XMS_ITS | Encounter Summary ---
Author Organization [facility] Address [address] [place] [address] Care Team Providers Care Assistant Credit Manager Name Role Phone Mercedes Goldberg Primary Care Pr ovider Micheal Leslie MD Primary Care Provider [phone] Keith Palacios MD Unavailable [phone] Encounter Details Date Type Department Care Team (Late st Contact Info) Description 07/04/2020 Documentation [facility] [address] [place] [address] Tosha Araujo, RN Social History Tobacco Use Types Packs/Day Years Used Date Smoking Tobacco: Never Smokeless Tobacco: Never Alcohol Use Standard Drinks/Week Comments Yes 0 (1 standard drink = 0.6 oz pur e alcohol) occasionally [place] Depression Scale Answer Date Recorded [place] Depression Scale Total 0 06/27/2020 The thought of harming myself has occurred to me . Never 06/27/2020 Comments Yes Sex and Gender Information Value Date Recorded Sex Assigned at Not on file Legal Sex Female 8:28 AM PROJECT ASST Gender Identity Female 10/02/2023 5:39 PM PROJECT ASST Sexual Orientation Lesbian 10/02/2023 5: 39 PM PROJECT ASST documented as of this encounter Miscellaneous Notes * Note - Tosha Araujo, RN - 07/04/2020 9:21 AM CDT Returned phone call. No answer and unable to leave message. documented in this encounter Plan of Treatment Not on file documented as of this encounter Visit Diagnoses Not on filedocumented in this encounter Care Teams Assistant Credit Manager Relationship Specialty Start Date End Date Mercedes Goldberg PA PCP - General 10/18/18 10/02/23 Micheal Leslie MD [address] [facility] [address] [place] [address] PCP - General Family Medicine 10/03/23 Keith Palacios MD [address] [facility] [address] [place] [address] Referring Physician Obstetrics and Gynecology 10/31/24 documented as of this encounter
--- OUTSIDE RECORDS SUMMARY | 2025-06-11 09:14 | XMS_ITS | Patient Health Record ---
Author Organization [facility] [employer] Address [address] [facility] [address] [facility] [address] [place] [address] Care Team Providers Care Sheet Music Salesperson Name Role Phone Milind Nava Unavailable [phone] Reason For Referral No Information Plan Of Treatment No Information
--- OUTSIDE RECORDS SUMMARY | 2025-06-11 09:15 | XMS_ITS | Referral Summary ---
Author Organization [facility] Address [address] [place] [address] Care Team Providers Care Cushion Maker Hand Name Role Phone Micheal Leslie MD Primary Care Provider [phone] Keith Palacios MD Unavailable [phone] Allergies Active Allergy Reactions Criticality Noted Date [...] Assessment & Plan (10/03/2023 9:52 AM WATER JET OPERATOR): A(n) initial well visit to establish care [...] Return in 1 year Heterozygous MTHFR mutation [id number] 01/02/2020 History of section 12/10/2019 Endometriosis 08/04/2017 [...] staff should administer the PHQ-9) 0 10/31/2024 [place] Depression Scale Answer Date Recorded [place] Depression Scale Total 0 08/08/2020 The thought of harming myself has occurred to me . 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 Not on file Not o n file Last Filed Vital Signs Vital Sign Reading Time Taken Comments Blood Pressure 116/84 10/31/2024 1:34 PM WATER JET OPERATOR Pulse 79 10/31/2024 1:34 PM WATER JET OPERATOR Temperature 36 C (96.8 F) 10/31/2024 1:34 PM WATER JET OPERATOR Respiratory Rate 14 10/31/2024 1:34 PM WATER JET OPERATOR Oxygen Saturation 99% 10/31/2024 1:34 PM WATER JET OPERATOR Inhaled Oxygen Concentration - - Weight 74.4 kg (164 lb) 10/31/2024 1:34 PM WATER JET OPERATOR Height 170.2 cm (5' 7) 10/31/2024 1:34 PM WATER JET OPERATOR Body Mass Index 25.69 10/31/2024 1:34 PM WATER JET OPERATOR Plan of Treatment Not on file Medical Devices Implanted Type Area Manager Freelance Device Identifier Shelf Expiration Date Model / Serial / Lot [employer] [id number] Seprafilm 6x5in Barrier Adhesion Sterile Disposable Latex Free - [id number] Implanted:Qty: 1 on 06/26/2020 by Manohar Munoz MD at [facility] [employer] [id number] 09/27/2022 [id number] / / [id number] Procedures Procedure Name Priority Date/Time Associated Diagnosis Comments PAP AND HIGH RISK HPV, REFLEX TO GENOTYPING Routine 08/08/2020 9:20 AM CDT follow-up HEPATITIS C ANTIBODY Routine 12/10/2019 1:19 PM WATER JET OPERATOR from Last 3 Months or Most Recently Relevant to Health Maintenance Results * Pap and High Risk HPV, reflex to Genotyping (08/08/2020 9:20 AM CDT) Swab 08/08/2020 9:20 AM CDT 08/22/2020 12:44 PM CDT Narrative PATHOLOGY [facility] - 08/28/2020 10:30 AM CDT [address] [address] Tele: Kacie Johnson MD - Transfer And Pumphouse Operator Chief CYTOLOGY REPORT Patient Name: ISA TOM Address: [address] [place] [address] Gender: F : 1990 (Age: 30) Service: Laboratory Location: Lab [facility] #: [id number] Patient Type: [facility] Lab Taken: 08/08/2020 Received: 08/22/2020 Reported: [...] SULY Hill (ASCP) Clerical Data Follow A; 988[address] DIAGNOSIS COMMENT: Ancillary Testing: HPV High Risk [...] CYTOLOGY ORDERABLES Final Result Performing Organization Address City/[facility]/ZIP Co de Phone Number PATHOLOGY [facility] Laboratory Receiving [address] [place] [address] * Hepatitis C antibody (12/10/2019 1:19 PM WATER JET OPERATOR) Hep C Ab Non-Reactiv e Non-Reactiv e [facility]AN [facility] Blood specimen (specimen) 12/10/2019 1:19 PM WATER JET OPERATOR 12/10/2019 3:22 PM WATER JET OPERATOR Manohar Munoz MD LAB MICROBIOLOGY - GENERAL OR DERABLES Final Result Performing Organization Address City/[facility] Co de Phone Number [facility] [address] [place] [address] from Last 3 Months or Most Recently Relevant to Health Maintenance Insurance [employer] ACCESS CHOICE CIGNA OPEN ACCESS CIGNA OPEN ACCESS CIGNA OPEN ACCESS Advance Directives For more information, please contact: [phone] * Full Code (Latest Code Status on File) Date Activated Date Inactivated Comments 06/26/2020 5:44 PM 06/29/2020 2:22 PM * Full Code Date Activated Date Inactivated Comments 06/26/2020 10:08 AM 06/26/2020 5:44 PM Full CPR in case of cardiopulmonary arrest * Full Code Date Activated Date Inactivated Comments 10/09/2019 8:09 AM 10/10/2019 4:40 AM Care Teams Cushion Maker Hand Relationship Specialty Start Date End Date Micheal Leslie MD [address] [facility] [address] [place] [address] PCP - General Family Medicine 10/03/23 Keith Palacios MD [address] [address] [place] [address] Referring Physician Obstetrics and Gynecology 10/31/24
--- OUTSIDE RECORDS SUMMARY | 2025-06-11 09:15 | XMS_ITS | Data Portability ---
Author Organization [facility] Address [address] [place] [address] Care Team Providers Care Assistant Branch Operations Manager Name Role Phone CHEPE RUCKER Primary Care Provider Unavailab le Assessment No assessment recorded. Plan of Treatment Reminders Order Date Submit Date Provider Last Modified By Organization Details Last Modified Time Details Appointments ANY 15 2024 01:00P M RALEIGH Sepulveda Not available Not available Not available Lab CMP, serum or plasma 2024 025 [facility], [address], [place], [address], 04/24/2025 13:29:48 vitamin B12 + folate, serum or blood 2024 025 [facility], [address], [place], [address], 04/24/2025 13:30:10 HbA1c (hemoglo bin A1c), blood 2024 025 [facility] [facility], [address], [place], [address], 04/24/2025 13:29:59 CBC w/ auto diff 2024 025 [facility] [employer] [facility], [address], [place], [address], 04/24/2025 13:30:20 iron + TIBC + ferritin , serum 2024 025 [email or web address], [address] [place], [address], 04/24/2025 13:29:33 Referral None recorded . Procedures None recorded . Surgeries None recorded . Imaging None recorded . Medication Orders None recorded . Patient TargetsNo targets recorded. Patient InstructionsNo instructions recorded. Reason for Referral None Reported. Results Created Date Observation Date Name Description Value Unit Range Abnormal Flag Note LastModifiedBy Organization Detail LastModifiedTime 04/23/2004/23/2025 MAMMO , diagn ostic , bilat eral No observ ation record ed. [email or web address] On License Of [facility] [address] [place], [address], 04/23/2025 14:00:39 Result Notes None recorded. Problems Name Problem SNOMED Code Status Onset Date Resolution Date Notes Provider Name and Address Organization Details Recorded Time Body mass index 25-29 - overweight 075534788 Active 2024 Gemma Bautista MA null, [place] - [place] 12:10:25 Iron deficiency anemia 22735974 Active 2024 RALEIGH Sepulveda Attn: Demi g,[address] [place], [address], [facility] - [facility] 5 21:11:25 Long-term drug therapy Active 2024 RALEIGH Sepulveda Attn: Marychuyin g,[address] [place], [address], [facility] - [facility] 5 21:11:27 Weight maintenance regimen 50499955 Active 2024 RALEIGH Sepulveda Attn: Accountin g,[address] [place], [address], [facility] - [facility] 5 21:11:28 Problem Notes None recorded. Procedures Surgical History Date Name Laterality Status Provider Name and Address Organization Details Recorded Time section completed Gemma Bautista [place] - [place] 12/10/2024 14:07:46 Imaging Results None recorded. Procedure Notes None recorded. Medical Equipment None Reported. Allergies Allergen ID Allergen Name Allergen Category Reaction Reaction Severity Criticality Documentation Date Start Date Code Code System Note Provider Name and Address Organization Details Recorded Time 376157 amoxicill in medicatio n Not available Not available Not available 12/10/2024 723 RxNorm Gemma Bautista MA [place], [place] - [facility] 5 12:06:09 370772 Product containin g penicilli n (product) medicatio n Not available Not available Not available 12/10/2024 73081 8001 SNOMED Sixtoapril Bautista MA [place], [place] - [facility] 12:06:15 Medications Name Sig Start Date Stop Date Status Note LastModified by Organization Details LastModified Time valacyclovi r 1 gram tablet TAKE 2 TABLETS BY MOUTH EVERY 12 HOURS FOR 1 DAY NEEDED FOR FLARE UP active Not Available Not Available No t Available doxycycline hyclate 50 mg capsule Take by oral route for 30 days. 12/10 completed Not Available Not Available Not Available pimecrolimu s 1 % topical cream APPLY TOPICALLY TO FACE TWICE DAILY 12/10 completed Not Available Not Available Not Available ferrous sulfate 325 mg (65 mg iron) tablet Take 1 tablet every day by oral route. 2024 active Not Available Not Available Not Avai lable promethazin e 25 mg tablet TAKE 1/2 TO 1 TABLET BY MOUTH EVERY 12 HOURS NEEDED FOR NAUSEA 12/10 completed Not Available Not Available Not Available escitalopra m 10 mg tablet TAKE 1 TABLET BY MOUTH DAILY 12/10 completed Not Available Not Available Not Available escitalopra m 20 mg tablet Take 1 tablet every day by oral route for 90 days. active Not Available Not Available No t Available Wegovy 0.5 mg/0.5 mL subcutaneou s pen injector active Not Available Not Available Not Available Zepbound 5 mg/0.5 mL subcutaneou s pen injector ADMINISTE R 5 MG UNDER THE SKIN WEEKLY 12/10 completed Not Available Not Available Not Available Zepbound 2.5 mg/0.5 mL subcutaneou s pen injector ADMINISTE R 2.5 MG UNDER THE SKIN WEEKLY FOR 4 WEEKS 12/10 completed Not Available Not Available Not Available Vitals Date Recorded Systolic And Diastolic Provider Name and Address Organization Details Last Updated DateTime 12/10/2024 110/80 mm[Hg] RALEIGH Sepulveda Attn: Accounting,[address] [facility], [place], [address], [facility] 12/10/2024 12:35:53 Date Recorded Body weight Respiratory rate Body mass index (BMI) Body height Oxygen saturation Oxygen saturation in Arterial blood by Pulse oximetry Heart rate Systolic And Diastolic Provider Name and Address Organization Details Last Updated DateTime 72877.9 6 g 18 /min 25.4 kg/m2 170.18 cm 100 % 100 % 92 /min 126/82 mm[Hg] Gemma Bautista MA [facility] 12:11:41 Social History Question Answer Notes LastModified by Organizat ion Details LastModified Time Tobacco Smoking Status Never Smoker Gemma Bautista MA null, [facility] 12/10/2024 12:09:08 Do You Have An Advance [...] High Blood Pressure N Atrial Fibrillation N Thyroid Problems N Kidney or Bladder Problems N GI Problems N Depression N COPD N Blood Clots N Have you had a mammogram in the last yea r? N Skin Problems N Anemia N Heart Attack (SD) N Diabetes N Anxiety Disorder N Muscle, Joint, or Bone Problems N Seizures/Epilepsy N Have you had a colonoscopy in the last 1 0 years? N Acid Reflux (GERD) N Cancer N Stroke N Asthma N Allergies N Have you had a PSA blood test in the las t year? N High Cholesterol N Hepatitis N Liver Disease N Headaches N Osteoporosis N Heart Failure N Gynecological History Statement/Question Response Menses Monthly [...] Time Influenza, MDCK, quadrivalent, PF 09/06/2022 completed HILARIO [place], [place] - [facility] 12/10/2024 12:09:14 COVID-19, mRNA, LNP-S, PF, 30 mcg/0.3 mL dose 01/27/2021 completed [place] [facility] 12/10/2024 12:09:14 COVID-19, mRNA, LNP-S, PF, 30 mcg/0.3 mL dose 02/17/2021 completed [place]ILAR[place] [facility] 12/10/2024 12:09:14 COVID-19, mRNA, LNP-S, PF, 30 mcg/0.3 mL dose 10/23/2021 completed [place] [facility] 12/10/2024 12:09:14 COVID-19, mRNA, LNP-S, bivalent, PF, 30 mcg/0.3 mL dose 09/06/2022 completed [place] [facility] 12/10/2024 12:09:14 COVID-19, mRNA, LNP-S, PF, kalli-sucrose, 30 mcg/0.3 mL 11/05/2023 completed [place] [facility] 12/10/2024 12:09:14 influenza, unspecified formulation 08/27/2024 completed [place] [facility] 12/10/2024 12:09:14 Tdap 04/23/2020 completed H[place] [facility] 12/10/2024 12:09:14 Influenza, split virus, trivalent, PF 12/16/2017 completed [place]ILAR[place] [facility] 12/10/2024 12:09:14 Influenza, split virus, quadrivalent, PF 09/01/2020 completed Gemma Bautista [place] null, [place] - [place] 12/10/2024 12:09:14 Influenza, split virus, quadrivalent, PF 09/09/2018 completed HILARIO [place] - [place] 12/10/2024 12:09:14 Influenza, split virus, quadrivalent, PF 10/03/2023 completed Gemma Bautista [place] null, [place] - [place] 12/10/2024 12:09:14 Influenza, split virus, quadrivalent, PF 10/23/2021 completed HILARIO [place] - [place] 12/10/2024 12:09:14 Past Encounters Encounter ID Performer Location Encounter Start Date Encounter Closed Date Diagnosis/Indication Diagnosis SNOMED-CT Code Diagnosis ICD10 Code Diagnosis Note [id number] Manohar Pantoja MD [facility] [address] [place] [address] 12/10/2024 11:38:56 12/10/2024 13:05:44 Body mass index 25-29 - overweight 311131158 Z68.25 BMI is 25.4 Adult [facility] th examination 213997067 Z00.00 Annual wellness exam completed. Labs are up-to-date from previous PCP and reviewed on her [employer] portal today Weight vicki ntenance regimen 26740160 Z71.3 Patient has had much success on Wegovy therapy she is currently taking Wegovy 0.5 mg weekly dosing for maintenanc e Long-term drug therapy 247124215 Z79.891 Routine CMP, B12 and folate will be due in February Diabetes m ellitus screening 650026745 Z13.1 A1c screening due in February Iron defic iency anemia 97752275 D50.9 History of iron deficiency anemia reported and updated CBC and iron studies will be done in February Health Concerns Section Related Observation LastModified by Organization Detai ls LastModified Time None Recorded Concern Status LastModified by Organization Details LastModified Time None Recorded Advance Directives Directive Y: will Payers Insurance Date Sequence Insurance Name Policy Number Policy Powell Covered Member ID Powell Member ID Guarantor Name 06/08/2025 1 CHRISSY [id number] Chari Tom [id number] 2 Ruthie Charmaine Vaishali Notes Date Note Type Note Provider Name and Address Organization Details Recorded Time 12/10/2024 text/html AnemiaReported bypatient.Notes:labs are UTD from previous PCP that she saw prior to coming here. On iron supplement due to iron deficiency from heavy menstrual cycles. Dr. Palacios is gyne and she will f/u with them.Anxiety/Depress ionReported bypatient.Notes:Pt is taking lexapro 20mg daily for anxiety underlying related to health. Labs including cholesterol, sugar completed and viewed in pt's portal [employer]. RALEIGH Sepulveda Attn: Accounting,[address] [facility], [place], [address], [facility] 12/27/2024 21:12:06 OBGyn Episode No OBEpisode recorded.
[2025-06-11 09:56] LABS: Hematocrit 36.0 % (37.0-47.0); Hemoglobin 11.2 g/dL (12.0-15.0)
== END 2025-06-11 08:59 | disposition home or self-care (01) ==
LOC: ANHLAB 08:58
PROVIDERS: PCP Physician Assistant; Visit Provider Anesthesiology
DX: N93.9 Abnormal uterine and vaginal bleeding, unspecified (principal)
CPT/HCPCS: 36415; 85014; 85018

== ENCOUNTER 2025-06-12 01:36 | Day surgery (SDC) | payer OTHER, SELFPAY ==
--- NOTE | 2025-05-29 17:22 | PC.NURSE ---
Report to the Outpatient Waiting Room, entrance under the green pavilion located off [facility], at time 1030 on date 06/12/25. Planned Procedure Time: 1230.? Time changes happen often and if your time is changed the preop area will call you the afternoon before. - You and your visitor will be asked to self-screen and do not enter if you have any COVID symptoms. Please call surgeon if you need to reschedule. - A mask is optional within the hospital at this time. Patients may have clear liquids (water, carbonated beverages, clear teas, apple juice) until 3 hours prior to surgery with a maximum of 20 ounces. 0930 - No food from midnight until time of surgery and no smoking, or chewing tobacco (or any form of nicotine). No chewing gum, candy or mints. - Infants may have breast milk until 4 hours before surgery, infant formula 6 hours prior to surgery. - Children will be allowed to drink immediately following surgery.? If applicable, please bring a bottle or sippy cup to assist with drinking. Juice, water, soda, and popsicles are readily available.? For infants on formula, please bring formula the day of surgery.? Pacifiers are allowed. Take only the following medications with a SIP of water on the morning of surgery: lexapro DO NOT STOP ANY OF YOUR OTHER PRESCRIPTION MEDICATIONS PRIOR TO SURGERY EXCEPT THE FOLLOWING Hold all vitamins and supplements for 3 days per anesthesiologist: iron supplement Medications to discontinue per physician alexey- stop for 10 prior to your surgery Date to take last dose 06/02/25 Please no make-up, nail danish, hairspray, perfume, deodorant, or body powder the day of surgery.? No jewelry (including any body piercings) or valuables the day of surgery, leave them at home.? Please take a shower or bath the night before, or the morning of, surgery with an antibacterial soap.? Wear comfortable, loose fitting clothing.? Children are encouraged to wear pajamas. - Jewelry must be removed prior to entering the operating room.? Rings and piercings that are not removed may be cut off. - The hospital will not accept responsibility for valuables.? - Please leave all valuables, including medications, at home the day of surgery. If you are going home after surgery, a licensed local company tanker driver must drive you home.? - NO public transportation without another adult if you receive anesthesia. - We recommend that an adult stay with you for 24 hours following discharge. - We also recommend that you do not drive, make important decision, drink alcoholic beverages, or take any drugs that were not prescribed by your health care provider for at least 24 hours after your discharge time. For Pediatric surgeries, we recommend two adults accompany the child home. Follow any additional instructions given to you from your surgeon. Telephone instructions given to Patient- Ruthie Tom and asked if any additional questions and then verbalized understanding. Patient advised to call surgeon office or pre surgery nurse liaison [phone] if any additional questions.
[2025-05-29 17:28] VITALS: BMI 25.1
--- OUTSIDE RECORDS SUMMARY | 2025-06-12 01:39 | XMS_ITS | Clinical Summary ---
Author Organization [facility] Address [address] [place] [address] Care Team Providers Care Hand Method Lasting Machine Operator Name Role Phone Micheal Leslie MD Primary Care Provider [phone] Keith Palacios MD Unavailable [phone] Allergies Active Allergy Reactions Criticality Noted Date [...] 10/03/2023 Assessment & Plan (10/03/2023 9:52 AM HEAD OF HISTORY): A(n) initial well visit to establish care [...] Return in 1 year Heterozygous MTHFR mutation [id number] 01/02/2020 History of section 12/10/2019 Endometriosis 08/04/2017 [...] staff should administer the PHQ-9) 0 10/31/2024 [place] Depression Scale Answer Date Recorded [place] Depression Scale Total 0 08/08/2020 The thought of harming myself has occurred to me . 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 Not on file Not on file Not [...] Comments Blood Pressure 116/84 10/31/2024 1:34 PM HEAD OF HISTORY Pulse 79 10/31/2024 1:34 PM HEAD OF HISTORY Temperature 36 C (96.8 F) 10/31/2024 1:34 PM HEAD OF HISTORY Respiratory Rate 14 10/31/2024 1:34 PM HEAD OF HISTORY Oxygen Saturation 99% 10/31/2024 1:34 PM HEAD OF HISTORY Inhaled Oxygen Concentration - - Weight 74.4 kg (164 lb) 10/31/2024 1:34 PM HEAD OF HISTORY Height 170.2 cm (5' 7) 10/31/2024 1:34 PM HEAD OF HISTORY Body Mass Index 25.69 10/31/2024 1:34 PM HEAD OF HISTORY Plan of Treatment Health Maintenance Due Date Last Done Comments Cervical Cancer Screening 08/08/2021 08/08/2020 Covid-19 Vaccine ( season) 2024 11/05/2023, 09/06/2022, 07/28/2022, Additional history exists Influenza Vaccine (#1) 2025 , 10/03/2023, 08/27/2023, Additional history exists Depression Screening 10/31/2025 10/31/2024, [...] 11/27/1997 Hepatitis C Screening Completed 12/10/2019, 019 HPV Vaccines Aged Out No longer eligi ble based on patient's age to complete this topic Pneumococcal vaccine <65 Aged Out No longer eligible based on patient's age to complete this topic Medical Devices Implanted Type Area Art Objects Salesperson Device Identifier Shelf Expiration Date Model / Serial / Lot Gen[employer] [id number] Seprafilm 6x5in Barrier Adhesion Sterile Disposable Latex Free - [id number] Implanted:Qty: 1 on 06/26/2020 by Manohar Munoz MD at [facility] [employer] [id number] 09/27/2022 [id number] / / [id number] Procedures Procedure Name Priority Date/Time Associated Diagnosis Comments PAP AND HIGH RISK HPV, REFLEX TO GENOTYPING Routine 08/08/2020 9:20 AM CDT follow-up HEPATITIS C ANTIBODY Routine 12/10/2019 1:19 PM HEAD OF HISTORY from Last 3 Months or Most Recently Relevant to Health Maintenance Results * Pap and High Risk HPV, reflex to Genotyping (08/08/2020 9:20 AM CDT) Swab 08/08/2020 9:20 AM CDT 08/22/2020 12:44 PM CDT Narrative PATHOLOGY [facility] - 08/28/2020 10:30 AM CDT [address] [address] Tele: Kacie Johnson MD - Construction Administrator CYTOLOGY REPORT Patient Name: ISA TOM Address: [address] [place] [address] Gender: F : 1990 (Age: 30) Service: Laboratory Location: Lab [facility] #: [id number] Patient Type: [facility] Lab Taken: 08/08/2020 Received: 08/22/2020 Reported: [...] SULY Hill (ASCP) Clerical Data Follow A; 29717 DIAGNOSIS COMMENT: Ancillary Testing: HPV High Risk [...] NP LAB CYTOLOGY ORDERABLES Final Result PATHOLOGY [facility] Laboratory Receiving [address] [place] [address] * Hepatitis C antibody (12/10/2019 1:19 PM HEAD OF HISTORY) Hep C Ab Non-Reactiv e Non-Reactiv e [facility] Blood specimen (specimen) 12/10/2019 1:19 PM HEAD OF HISTORY 12/10/2019 3:22 PM HEAD OF HISTORY Manohar Munoz MD LAB MICROBIOLOGY - GENERAL OR DERABLES Final Result Performing Organization Address City/[facility]/ZIP Co de Phone Number [facility] [address] Department [place] [address] from Last 3 Months or Most Recently Relevant to Health Maintenance Insurance [employer] Social Project CHOICE Member Subscriber Plan / Payer (Ef fective 2016-Present) Name:Isa Tom Relation to Subscriber:Spouse Name:KOCHARI Date of :1983 (Home) Address: [facility] [place] [address] Payer ID:[id number] (NA) Type:[facility] Address: [address] OPEN ACCESS CIGNA OPEN ACCESS OneTouchEMRCHARLA OPEN ACCESS Advance Directives For more information, please contact: [phone] * Full Code (Latest Code Status on File) Date Activated Date Inactivated Comments 06/26/2020 5:44 PM 06/29/2020 2:22 PM * Full Code Date Activated Date Inactivated Comments 06/26/2020 10:08 AM 06/26/2020 5:44 PM Full CPR in case of cardiopulmonary arrest * Full Code Date Activated Date Inactivated Comments 10/09/2019 8:09 AM 10/10/2019 4:40 AM Care Teams Hand Method Lasting Machine Operator Relationship Specialty Start Date End Date Micheal Leslie MD [address] [facility] [address] [place] [address] PCP - General Family Medicine 10/03/23 Keith Palacios MD [address] [facility] [address] [facility] [address] [place] [address] Referring Physician Obstetrics and Gynecology 10/31/24
--- OUTSIDE RECORDS SUMMARY | 2025-06-12 01:39 | XMS_ITS | Patient Health Record ---
Author Organization [facility] Address [address] [facility] [address] [facility] [address] [place] [address] Care Team Providers Care Ocean Export Account Manager Name Role Phone Milind Nava Unavailable [phone] Reason For Referral No Information Plan Of Treatment No Information
--- OUTSIDE RECORDS SUMMARY | 2025-06-12 01:39 | XMS_ITS | Clinical Summary ---
Author Organization [facility] Address [address] [facility] [place] [address] Care Team Providers Care Technical Consultant Name Role Phone Lashell Gupta MD Unavailable [phone] Cookie Rodriguez MD Primary Care Provider [phone] Source Comments [facility],non-owned Affiliates and Associated Physician Practices is amultiple site organization consisting of ambulatory clinics and hospital sitesin [place], [place], [place] and [place]. This disclosure is being madepursuant to the Care Everywhere program and may not contain all information available regarding this patient. Last updated 18.[facility] Allergies Active Allergy Reactions Criticality Noted Date [...] on file Legal Sex Female 1:19 PM FOOD SERVICE SUPERVISOR Gender Identity Not on file Sexual Orientation Not on file Last Filed Vital Signs Vital Sign Reading Time Taken Comments Blood Pressure 120/78 11/29/2017 3:21 PM FOOD SERVICE SUPERVISOR Pulse 100 11/29/2017 3:21 PM FOOD SERVICE SUPERVISOR Temperature 37.9 C (100.3 F) 11/29/2017 3:21 PM FOOD SERVICE SUPERVISOR Respiratory Rate 20 11/29/2017 3:21 PM FOOD SERVICE SUPERVISOR Oxygen Saturation 99% 11/29/2017 3:21 PM FOOD SERVICE SUPERVISOR Inhaled Oxygen Concentration - - Weight 78 kg (172 lb) 11/29/2017 3:21 PM FOOD SERVICE SUPERVISOR Height 170.2 cm (5' 7) 11/29/2017 3:21 PM FOOD SERVICE SUPERVISOR Body Mass Index 26.94 11/29/2017 3:21 PM FOOD SERVICE SUPERVISOR Plan of Treatment Health Maintenance Due [...] topic Insurance [employer] ANTH CIGNA Care Teams Technical Consultant Relationship Specialty Start Date End Date Cookie Rodriguez MD PCP - General Internal Medicine 08/07/13 Lashell Gupta MD Psychiatry 08/07/13
--- OUTSIDE RECORDS SUMMARY | 2025-06-12 01:39 | XMS_ITS | Referral Summary ---
Author Organization [facility] Address [address] [place] [address] Care Team Providers Care Full Stack Net Developer Name Role Phone Micheal Leslie MD Primary Care Provider [phone] Keith Palacios MD Unavailable [phone] Allergies Active Allergy Reactions Criticality Noted Date [...] 10/03/2023 Assessment & Plan (10/03/2023 9:52 AM DUST COLLECTOR ATTENDANT): A(n) initial well visit to establish care [...] Return in 1 year Heterozygous MTHFR mutation [id number] 01/02/2020 History of section 12/10/2019 Endometriosis 08/04/2017 [...] staff should administer the PHQ-9) 0 10/31/2024 [place] Depression Scale Answer Date Recorded [place] Depression Scale Total 0 08/08/2020 The thought of harming myself has occurred to me . 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 on file Not on file Not o n file Last Filed Vital Signs Vital Sign Reading Time Taken Comments Blood Pressure 116/84 10/31/2024 1:34 PM DUST COLLECTOR ATTENDANT Pulse 79 10/31/2024 1:34 PM DUST COLLECTOR ATTENDANT Temperature 36 C (96.8 F) 10/31/2024 1:34 PM DUST COLLECTOR ATTENDANT Respiratory Rate 14 10/31/2024 1:34 PM DUST COLLECTOR ATTENDANT Oxygen Saturation 99% 10/31/2024 1:34 PM DUST COLLECTOR ATTENDANT Inhaled Oxygen Concentration - - Weight 74.4 kg (164 lb) 10/31/2024 1:34 PM DUST COLLECTOR ATTENDANT Height 170.2 cm (5' 7) 10/31/2024 1:34 PM DUST COLLECTOR ATTENDANT Body Mass Index 25.69 10/31/2024 1:34 PM DUST COLLECTOR ATTENDANT Plan of Treatment Not on file Medical Devices Implanted Type Area Manager Of Application Development Device Identifier Shelf Expiration Date Model / Serial / Lot [employer] [id number] Seprafilm 6x5in Barrier Adhesion Sterile Disposable Latex Free - [id number] Implanted:Qty: 1 on 06/26/2020 by Manohar Munoz MD at [facility] [employer] [id number] 09/27/2022 [id number] / / [id number] Procedures Procedure Name Priority Date/Time Associated Diagnosis Comments PAP AND HIGH RISK HPV, REFLEX TO GENOTYPING Routine 08/08/2020 9:20 AM CDT follow-up HEPATITIS C ANTIBODY Routine 12/10/2019 1:19 PM DUST COLLECTOR ATTENDANT from Last 3 Months or Most Recently Relevant to Health Maintenance Results * Pap and High Risk HPV, reflex to Genotyping (08/08/2020 9:20 AM CDT) Swab 08/08/2020 9:20 AM CDT 08/22/2020 12:44 PM CDT Narrative PATHOLOGY [facility] - 08/28/2020 10:30 AM CDT [address] [address] Tele: Kacie Johnson MD - Pharmacist Manager CYTOLOGY REPORT Patient Name: ISA TOM Address: [address] [place] [address] Gender: F : 1990 (Age: 30) Service: Laboratory Location: Lab [facility] #: [id number] Patient Type: [facility] Lab Taken: 08/08/2020 Received: 08/22/2020 [...] SULY Hill (ASCP) Clerical Data Follow A; [address] DIAGNOSIS COMMENT: Ancillary Testing: HPV High Risk [...] CYTOLOGY ORDERABLES Final Result Performing Organization Address City/[facility]/ZIP Co de Phone Number PATHOLOGY [facility] Laboratory Receiving [address] [place] [address] * Hepatitis C antibody (12/10/2019 1:19 PM DUST COLLECTOR ATTENDANT) Hep C Ab Non-Reactiv e Non-Reactiv e [facility] Blood specimen (specimen) 12/10/2019 1:19 PM DUST COLLECTOR ATTENDANT 12/10/2019 3:22 PM DUST COLLECTOR ATTENDANT Manohar Munoz MD LAB MICROBIOLOGY - GENERAL OR DERABLES Final Result Performing Organization Address City/[facility] Co de Phone Number [facility] [address] Department [place] [address] from Last 3 Months or Most Recently Relevant to Health Maintenance Insurance [employer] ACCESS CHOICE [facility] Address: [address] [place] [address] CIGNA OPEN ACCESS CIGNA OPEN ACCESS CIGNA OPEN ACCESS Advance Directives For more information, please contact: [phone] * Full Code (Latest Code Status on File) Date Activated Date Inactivated Comments 06/26/2020 5:44 PM 06/29/2020 2:22 PM * Full Code Date Activated Date Inactivated Comments 06/26/2020 10:08 AM 06/26/2020 5:44 PM Full CPR in case of cardiopulmonary arrest * Full Code Date Activated Date Inactivated Comments 10/09/2019 8:09 AM 10/10/2019 4:40 AM Care Teams Full Stack Net Developer Relationship Specialty Start Date End Date Micheal Leslie MD [address] [facility] [address] [place] [address] PCP - General Family Medicine 10/03/23 Keith Palacios MD [address] [place] [address] Referring Physician Obstetrics and Gynecology 10/31/24
--- OUTSIDE RECORDS SUMMARY | 2025-06-12 01:39 | XMS_ITS | Encounter Summary ---
Author Organization [facility] Address [address] [place] [address] Care Team Providers Care Textile Designer Name Role Phone Mercedes Goldberg Primary Care Pr ovider Micheal Leslie MD Primary Care Provider [phone] Keith Palacios MD Unavailable [phone] Encounter Details Date Type Department Care Team (Late st Contact Info) Description 07/04/2020 Documentation [facility] [address] [place] [address] Tosha Araujo, RN Social History Tobacco Use Types Packs/Day Years Used Date Smoking Tobacco: Never Smokeless Tobacco: Never Alcohol Use Standard Drinks/Week Comments Yes 0 (1 standard drink = 0.6 oz pur e alcohol) occasionally [place] Depression Scale Answer Date Recorded [place] Depression Scale Total 0 06/27/2020 The thought of harming myself has occurred to me . Never 06/27/2020 Comments Yes Sex and Gender Information Value Date Recorded Sex Assigned at Not on file Legal Sex Female 8:28 AM COURSE DEVELOPER Gender Identity Female 10/02/2023 5:39 PM COURSE DEVELOPER Sexual Orientation Lesbian 10/02/2023 5: 39 PM COURSE DEVELOPER documented as of this encounter Miscellaneous Notes * Note - Tosha Araujo, RN - 07/04/2020 9:21 AM CDT Returned phone call. No answer and unable to leave message. documented in this encounter Plan of Treatment Not on file documented as of this encounter Visit Diagnoses Not on filedocumented in this encounter Care Teams Textile Designer Relationship Specialty Start Date End Date Mercedes Goldberg PA PCP - General 10/18/18 10/02/23 Micheal Leslie MD [address] [facility] [address] [place] [address] PCP - General Family Medicine 10/03/23 Keith Palacios MD [address] [facility] [address] [place] [address] Referring Physician Obstetrics and Gynecology 10/31/24 documented as of this encounter
--- OUTSIDE RECORDS SUMMARY | 2025-06-12 01:39 | XMS_ITS | Continuity of Care Document ---
Author Organization [facility] Address [address] [facility] [address] [place] [address] Phone Care Team Providers Care Political Geographer Name Role Phone Susan PT, SHELLYT, Brennon Unavailable Unavailable Procedures Procedure Date PT Evaluation Moderate Complexity Therapeutic Activities Neuromuscular Re-Ed Therapeutic Exercise Advance Directives Directive Yes / No Effective Date File Name No Information Encounters Encounter Description Practice Location Reason(s) For Visit Diagnoses Date Provider Providers Copied on Encounter [facility], [address] [facility] [address], [place], [place], [id number], tel:[phone] [place] No Information 4 Susan Willett. . [facility], [address] [facility] [address], [place], [place], [id number], tel:[phone] [place] No Information 3 Susan Willett. . Referring Provider: Access Direct. Family History Family Member Type Diagnosis Age At Onset No Information Payers Payer name Insurance type Covered alliance party ID Authoriza tion(s) [facility] [id number] Social History Type Description Quantity Date Captured Comments Sex Female Smoking Status No Information Chief Complaint And Reason For Visit No Information Reason For Referral Reason For Referral No Information History Of Present Illness Encounter Date Complaint History Of Prese nt Illness No Information Functional Status Date Functional Assessmen t No Information Instructions Date Instruction Additional Infor mation Giving encouragement to exercise Related to Overweight Giving encouragement to exercise Related to Overweight Assessments Type Assessment Date No Information Patient Care Teams Name Effective Dates (start - stop) Status Members No Information
--- NOTE | 2025-06-12 11:34 | P.PNAN_ITS ---
Anes - Initial Pre Proc Eval Procedure: Operation Date: 06/12/25 12:30 Proposed Procedures p Hysteroscopy Dilation and Curettage with Johanny Endometrial Ablation - Keith Palacios MD Date/Time: 06/12/25 11:34 Surgeon: Keith Palacios MD Pre Op Diagnosis: abnormal uterine bleeding Patient Data Age: 35 Gender: F Height: 1.73 m Weight: 75 kg Allergies Allergy/AdvReac Type Severity Reaction Status Date / Time amoxicillin Allergy Unknown Rash Verified 05/29/25 17:12 Penicillins Allergy Unknown Rash Verified 05/29/25 17:12 Home Medications ?Medication ?Instructions ?Recorded ?Confirmed ?Type semaglutide (weight loss) 0.5 0.5 mg subcut WEEKLY 01/13/25 05/29/25 History mg/0.5 mL subcutaneous pen injector (Wegovy) escitalopram oxalate 20 mg tablet 20 mg PO DAILY 05/29/25 05/29/25 History (Lexapro) ferrous sulfate 325 mg (65 mg 325 mg PO DAILY 05/29/25 05/29/25 History iron) tablet (FeroSul) Patient hx anesthesia problems: none Family hx anesthesia problems: none Results Review: All pre-operative results and documents have been reviewed as part of the pre- operative evaluation. [facility], [facility] Past Medical History Medical History History of miscarriage Surgical History Surgical History History of tonsillectomy History of 2 sections Family History Family History Father Depression Mother Hypertension Depression Social History Social History Smoking status: Never smoker Alcohol intake: current Substance use: never Substance use type: does not use Do You Feel Safe in your Home?: Yes Lack of Transportation: No Lack of Food: Never True Current Housing: I Have Housing Concerned About Future Housing: No Difficulty Paying Gas/Electric Bills: No Difficulty Paying for Meds: No Currently Unemployed: No Education: Bachelor's Degree Difficulty w/ Childcare or Family Care: No Living arrangements: with family Occupation/Education: occupation Gender identity (if verbalized by the patient): Female Sexual Orientation (if Verbalized by the Patient): Lesbian, Corea, or Homosexual Spiritual care concerns: No Anes - Eval Final PreProcedure Day of Procedure 06/12/25 11:34 Patient weight: normal Lungs: normal air movement Airway: Mallampati scale class II Neurological: alert and oriented Last oral intake: >/= 8 hours ASA classification: I Emergent: no Anesthetic plan: proceed Anesthesia type and monitoring: general GIVS and standard monitoring Results Review: All pre-operative results and documents have been reviewed as part of the pre- operative evaluation. 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 Informed Consent: The patient's anesthetic plan and its attendant risks and benefits were discussed with the patient/family/POA. Questions were solicited and answers provided to the satisfaction of the patient/family/POA.
[2025-06-12 11:52] VITALS: BP 115/71; PULSE 70; RESP 16; TEMP 36.6; O2SAT 100
[2025-06-12] MEDS: ACETAMINOPHEN 500 MG TABLET 1000 MG PO (11:55)
[2025-06-12 11:58] LABS: BEDSIDEPREGUCG Negative (Negative)
--- NOTE | 2025-06-12 12:02 | WPDHPUPDATE1 ---
History and Physical Update Update Date/Time: 06/12/25 12:02 History and Physical has been reviewed, including an updated exam of the patient. There are NO changes in the patient's condition. Risks, benefits, and alternatives have been discussed and questions answered. Patient agrees to proceed with procedure.
[2025-06-12] MEDS: ceFAZolin 2 GM in SODIUM CHLORIDE 0.9% IV 50 ML 100 ML IVPB (12:28)
[2025-06-12] MEDS: LIDOCAINE 1% LOCAL INJ 10 ML VIAL INFILTRATE (12:29)
[2025-06-12 12:42] VITALS: BP 136/84; PULSE 77; RESP 14; O2SAT 100
--- NOTE | 2025-06-12 12:43 | W.PM.PROC2 ---
Procedure Note - Detailed Date of Procedure 06/12/25 Pre-op Diagnosis abnormal uterine bleeding Post-op Diagnosis Same Procedure Performed Johanny endometrial ablation and diagnostic hysteroscopy. Surgeon Keith Palacios MD Anesthesia MAC and Local Indications Menorrhagia Findings uterus sound to 9.5 cm cervical length 4.5 cm uterine length 5 cm, normal uterine cavity, good eschar noted post ablation. Description of Procedure After informed consent was obtained patient was taken to the operating room and adequate IV sedation was administered. Attention was turned to the vagina. Speculum was inserted. Single-tooth tenaculum placed on the anterior lip of the cervix. 10 cc of 1% lidocaine was injected at the cervical vaginal interface at the 2 and 5 and 8 and 10 position. The uterus was sounded to 9.5 cm. The cervix was dilated to an 8 Calle dilator. The cervical length was 4.5cm . The hysteroscope was inserted into the cavity. The findings were a normal uterine cavity. The hysteroscope was removed. The Johanny ablation instrument was inserted into the cavity. Cavity assessment was performed and confirmed intact. The ablation was enabled. After 120 seconds the Johanny stopped. The ablation instrument was removed. The hysteroscope was inserted and there was noted to be good eschar with the cavity. The hysteroscope was removed the single-tooth tenaculum was removed hemostasis was noted at the tenaculum site. Sponge count correct. The patient taken to recovery in stable condition. Estimated Blood Loss 5 Drains No Packing No Pathology None sent Complications No immediate complications Condition Stable Disposition Same day [facility] Billing Surgery - Charge Forward: Surgery Billing
[2025-06-12 13:10] VITALS: BP 133/84; PULSE 75; RESP 20
[2025-06-12] MEDS: KETOROLAC 15 MG/ML VIAL (*BKC) IV PUSH (13:24)
[2025-06-12 13:40] VITALS: BP 103/59; PULSE 68; RESP 20
== END 2025-06-12 13:45 | disposition home or self-care (01) ==
PROVIDERS: PCP Physician Assistant; Visit Provider Obstetrics & Gynecology
PROC: 0U5B8ZZ Destruction of Endometrium, Via Natural or Artificial Opening Endoscopic (ICD-10-PCS; CPT 58563; principal; 2025-06-12 12:30)
DX: N92.0 Excessive and frequent menstruation with regular cycle (principal); Z79.85 Long-term (current) use of injectable non-insulin antidiabetic drugs; Z98.890 Other specified postprocedural states
CPT/HCPCS: 58563; J0690; A9270; J1100; J1885; J2003; J2250; J2405; J2704; J3010

== ENCOUNTER 2025-06-12 16:36 | Emergency (ER) | payer OTHER, SELFPAY ==
--- NOTE | ~2025-06-12 | CT_ITS ---
EXAMINATION: CT abdomen pelvis w con DATE: 06/12/2025 17:39 INDICATION: POST UTERINE ABLATION ABDOMINAL PAIN TECHNIQUE: Computed tomography (CT) of the abdomen and pelvis was performed with 100 mL Omnipaque-350 intravenous contrast. Automated exposure control and iterative reconstruction technique were employe d. The dose-length product was 516.94 mGy-cm. COMPARISON: 02/15/2024. FINDINGS: Lower thorax: Unremarkable Liver: Normal. Biliary/Gallbladder: Trace pericholecystic fluid and an otherwise normal-appearing gallbladder. No bi le duct dilation. Pancreas: No mass or duct dilation. Spleen: Normal. Adrenals:No mass. Kidneys: No suspicious mass, obstructing stone, or hydronephrosis. GI tract: No small or large bowel dilation. Normal appendix. Diverticulosis without diverticulitis. Mesentery/Peritoneum: No ascites, mass, or free air. Retroperitoneum: No mass. Pelvis: Incompletely distended urinary bladder with wall thickening. Fluid distention of the endometr ial cavity. Uterine wall appears to be intact. Unremarkable bilateral ovaries with small, simple appe aring cysts. Small volume, nonsimple (31 HU) pelvic fluid. Soft Tissues: Soft tissues and body wall unremarkable. Bones: No acute osseous finding. IMPRESSION: Trace pericholecystic fluid and an otherwise normal-appearing gallbladder. Correlate for right upper quadrant pain and biliary laboratory abnormalities. Fluid distention of the endometrial cavity, correlate with history of vaginal bleeding and menstrual phase. Consider hematometra and pyometra in the differential. Nonsimple, small volume pelvic fluid. Uterine perforation is not excluded although no uterine wall de fect is appreciated. Bladder wall thickening may be secondary to incomplete distention or cystitis. Reviewed, dictated and finalized at location K. IMPRESSION: Trace pericholecystic fluid and an otherwise normal-appearing gallbladder. Konstantin elate for right upper quadrant pain and biliary laboratory abnormalities. Fluid distention of the endometrial cavity, correlate with history of vaginal b leeding and menstrual phase. Consider hematometra and pyometra in the different ial. Nonsimple, small volume pelvic fluid. Uterine perforation is not excluded altho ugh no uterine wall defect is appreciated. Bladder wall thickening may be secondary to incomplete distention or cystitis.
[2025-06-12 16:37] VITALS: BP 133/85; PULSE 66; RESP 15; TEMP 36.9; O2SAT 100
--- NOTE | 2025-06-12 16:52 | ED.ABDPAIN ---
HPI - Abdominal Pain General Chief Complaint: Abdominal Pain Stated Complaint: severe abd pain Time Seen by Provider: 06/12/25 16:50 Source: patient and family Mode of arrival: ambulatory Limitations: no limitations History of Present Illness HPI narrative: 35 YEARS OLD WHITE FEMALE STATUS POST UTERINE ABLATION SECONDARY TO HEAVY VAGINAL BLEED, GOT DISCHARGED HOME AT 1:30 P.M., AT HOME STARTED HAVING SEVERE ABDOMINAL CRAMPS GOING DOWN TO HER LEGS BILATERALLY WITH A LOT OF VOMITING. WITH VAGINAL SPOTTING. PATIENT CAME TO THE ED BY AMBULANCE. PATIENT HAD A PRESCRIPTION OF OXYCODONE AT THE PHARMACY RIGHT NOW. PATIENT REPORTS HER PAIN WAS 10/10 AND COULD NOT TAKE IT ANYMORE. Related Data Home Medications ?Medication ?Instructions ?Recorded ?Confirmed ?Last Taken ?Type semaglutide (weight loss) 0.5 0.5 mg subcut WEEKLY 01/13/25 05/29/25 Unknown History mg/0.5 mL subcutaneous pen injector (Wegovy) escitalopram oxalate 20 mg tablet 20 mg PO DAILY 05/29/25 05/29/25 05/29/25 History (Lexapro) ferrous sulfate 325 mg (65 mg 325 mg PO DAILY 05/29/25 05/29/25 Unknown History iron) tablet (FeroSul) Allergies Allergy/AdvReac Type Severity Reaction Status Date / Time amoxicillin Allergy Unknown Rash Verified 06/12/25 11:50 Penicillins Allergy Unknown Rash Verified 06/12/25 11:50 Review of Systems Review of Systems: All systems reviewed & are unremarkable except as noted in HPI and below PMFSH Past Medical History Medical History History of miscarriage Surgical History Surgical History History of tonsillectomy History of 2 sections Family History Family History Father Depression Mother Hypertension Depression Social History Social History Smoking status: Never smoker Alcohol intake: current Substance use: never Substance use type: does not use Do You Feel Safe in your Home?: Yes Lack of Transportation: No Lack of Food: Never True Current Housing: I Have Housing Concerned About Future Housing: No Difficulty Paying Gas/Electric Bills: No Difficulty Paying for Meds: No Currently Unemployed: No Education: Bachelor's Degree Difficulty w/ Childcare or Family Care: No Living arrangements: with family Occupation/Education: occupation Gender identity (if verbalized by the patient): Female Sexual Orientation (if Verbalized by the Patient): Lesbian, Corea, or Homosexual Spiritual care concerns: No Exam Narrative: GENERAL APPEARANCE: WELL-DEVELOPED, WELL-NOURISHED SKIN: PALE HEAD: NORMOCEPHALIC, NONTRAUMATIC EYES: CLEAR CONJUNCTIVA ENT: OROPHARYNX NORMAL, EARS NORMAL, NOSE NORMAL NECK: SUPPLE, NONTENDER CHEST AND RESPIRATORY: AIRWAY PATENT, NO RESPIRATORY DISTRESS, NO ACCESSORY MUSCLE USE HEART: REGULAR RATE/RHYTHM ABDOMEN: SOFT, NONTENDER, NO ORGANOMEGALY, QUIET BOWEL SOUNDS VASCULAR: NORMAL PERIPHERAL PULSES, NORMAL CAPILLARY REFILL. MUSCULOSKELETAL: NORMAL RANGE OF MOTION, NONTENDER BACK NEUROLOGIC: ALERT AND ORIENTED ?3, CHOCOLATE FINISHER OPERATOR IS NORMAL TESTED, NO GROSS MOTOR DEFICIT Course Consultations Consultation #1: DR BENTON DISCHARGED HOME Date: 06/12/25 Vital Signs Vital signs: Vital Signs Temperature 36.9 C 06/12/25 16:37 Pulse Rate 66 06/12/25 16:37 Respiratory Rate 15 06/12/25 16:37 Blood Pressure 133/85 06/12/25 16:37 Pulse Oximetry 100 06/12/25 16:37 Oxygen Delivery Room Air 06/12/25 16:37 Temperature 36.9 C 06/12/25 16:37 Pulse Rate 85 06/12/25 18:49 Respiratory Rate 16 06/12/25 18:49 Blood Pressure 128/87 06/12/25 18:49 Pulse Oximetry 98 06/12/25 18:49 Oxygen Delivery Room Air 06/12/25 16:37 MDM - Abdominal Pain MDM Narrative Medical decision making narrative: PATIENT IS STATUS POST UTERINE ABLATION SUBSEQUENTLY DEVELOPED SEVERE PAIN, NAUSEA AND VOMITING DIFFERENTIAL DIAGNOSIS POST UP PAIN, PERFORATION, ANEMIA BLOOD WORKUP TODAY INCLUDES CBC, CMP SHOWED WBC OF 10.1 HEMOGLOBIN 10.9 URINALYSIS NO EVIDENCE OF INFECTION CT ABDOMEN AND PELVIS WITH IV CONTRAST SHOWED POSTOP FINDINGS. PLEASE LOOK AT THE CT SCAN REPORT PATIENT WAS CONCERN ABOUT GOING HOME AND RECURRENCE OF THE PAIN. PATIENT DECLINED TO BE HOSPITALIZED OVERNIGHT FOR PAIN MANAGEMENT AND WOULD LIKE TO GO HOME. DR. BENTON AGREED WITH DISCHARGE AND OUTPATIENT FOLLOW-UP DIAGNOSIS POST UP PAIN DISCHARGED ON ZOFRAN AND GET THE OXYCODONE PRESCRIPTION SOON POSSIBLE THE PT WAS DISCHARGED TO HOME.THE PT,S CONDITION UPON DISCHARGE WAS FAIR,EDUCATION WAS PROVIDED TO THE PT IN REFERENCE TO THE FINAL IMPRESSION,DISCHARGE STUDY RESULTS,TREATMENT,PROGNOSIS AND NEED FOR FOLLOW UP . Lab Data 06/12/25 17:06 06/12/25 17:06 Labs: Lab Results 06/12/25 06/12/25 06/12/25 Range/Units 17:06 17:08 17:10 WBC 10.1 H (4.5-10.0) K/mm3 RBC 3.83 L (4.2-5.4) M/mm3 Hgb 10.9 L (12.0-15.0) g/dL Hct 33.9 L (37.0-47.0) % MCV 88.5 (80-100) fl MCH 28.5 (26-34) pg MCHC 32.2 (32-36) g/dl RDW 13.4 (11.5-14.5) % Plt Count 240 (150-375) k/mm3 MPV 10.7 H (7.4-10.4) fl Immature Gran % (Auto) Not Reportable Neut % (Auto) Not Reportable Lymph % (Auto) Not Reportable Humphreys % (Auto) Not Reportable Eos % (Auto) Not Reportable Baso % (Auto) Not Reportable Lymph # (Auto) Not Reportable Humphreys # (Auto) Not Reportable Eos # (Auto) Not Reportable Baso # (Auto) Not Reportable Abs Immat Gran (auto) Not Reportable Absolute Neuts (auto) Not Reportable Absolute Nucleated RBC Not Reportable Total Counted 100 Neutrophils % (Manual) 96 H (46-73) % Band Neutrophils % 2 (0-6) % Lymphocytes % (Manual) 1.0 L (18-44) % Monocytes % (Manual) 1 L (3-9) % Nucleated RBC % Not Reportable Abs Neuts (Manual) 9.89 H (1.3-6.7) K/mm3 Abs Lymphs (Manual) 0.10 L (1.1-4.5) K/mm3 Abs Monocytes (Manual) 0.10 (0.1-0.90) K/mm3 Platelet Estimate Adequate (Adequate) Hypochromasia 1+ Schistocytes None seen Sodium 135 L (137-145) mmol/L Potassium 3.7 (3.4-5.0) mmol/L Chloride 104 (98-107) mmol/L Carbon Dioxide 22 (22-30) mmol/L Anion Gap 9 (4-12) mmol/L BUN 11 (7-17) mg/dL Creatinine 0.58 L (0.7-1.0) mg/dL Estim Creat Clear Calc 109 ml/min Estimated GFR > 60 (59 - ) Glucose 127 H (65-110) mg/dL Calcium 9.0 (8.4-10.2) mg/dL Total Bilirubin 0.3 (0.2-1.3) mg/dL AST 28 (14-36) U/L ALT 19 (6-35) U/L Alkaline Phosphatase 35 L (38-126) U/L Total Protein 7.2 (6.3-8.2) g/dL Albumin 4.3 (3.5-5.1) g/dL Urine Color Yellow (Yellow) Urine Appearance Turbid H (Clear) Urine pH >=9.0 H (5.0-9.0) Ur Specific Enterprise 1.029 (1.001-1.035) Urine Protein 2+ H (Negative) mg/dL Urine Glucose (UA) Negative (Negative) mg/dL Urine Ketones 2+ H (Negative) mg/dL Ur Blood (Man) 2+ H (Negative) Urine Nitrate Negative (Negative) Urine Bilirubin Negative (Negative) Urine Urobilinogen 1.0 (<2.0) mg/dL Leukocyte Esterase Rfl Trace H (Negative) DIANNE/UL Urine RBC 51-100 H (0-2) /hpf Urine WBC 0-5 (0-3) /hpf Ur Squamous Epith Cells Few (Few) /hpf Urine Bacteria None seen /hpf Urine Casts 0-2 POC Urine HCG, Qual Negative (Negative) Imaging Data Radiologist's impression: ITS Impressions Abdomen/Pelvis CT 06/12/25 17:43 IMPRESSION: Trace pericholecystic fluid and an otherwise normal-appearing gallbladder. Correlate for right upper quadrant pain and biliary laboratory abnormalities. Fluid distention of the endometrial cavity, correlate with history of vaginal bleeding and menstrual phase. Consider hematometra and pyometra in the differential. Nonsimple, small volume pelvic fluid. Uterine perforation is not excluded although no uterine wall defect is appreciated. Bladder wall thickening may be secondary to incomplete distention or cystitis. Discharge Plan Discharge Clinical Impression: Post-op pain Patient Disposition: Home Condition: Improved Instructions: Pain Management After Surgery (DC) Patient Language: Taiwanese Prescriptions: New ondansetron 4 mg tablet,disintegrating 4 mg PO DAILY 3 Days Qty: 10 0RF No Action Wegovy 0.5 mg/0.5 mL pen injector 0.5 mg SUBCUT WEEKLY escitalopram oxalate [Lexapro] 20 mg tablet 20 mg PO DAILY ferrous sulfate [FeroSul] 325 mg (65 mg iron) tablet 325 mg PO DAILY hydrocodone-acetaminophen 5-325 mg tablet 1 tablet PO Q4H PRN (Reason: pain) Qty: 7 0RF Follow-up/Referrals: Yusuf,CHELLE Long [Primary Care Provider] - Keith Palacios MD [Physician] - 06/13/25
[2025-06-12] MEDS: ONDANSETRON INJ 4 MG/2 ML VIAL IV PUSH (17:03)
[2025-06-12] MEDS: HYDROmorphone HCL INJ (*CRX) 2 MG/ML VIAL 0.5 MG IV PUSH (17:03)
[2025-06-12] MEDS: SODIUM CHLORIDE 0.9% IV 1,000 ML 999 ML IV CONT (17:06)
--- NOTE | 2025-06-12 17:06 | PC.NURSE ---
Pt. able to ambulate to bathroom to provide urine sample.
[2025-06-12 17:11] LABS: BEDSIDEPREGUCG Negative (Negative)
[2025-06-12 17:11] LABS: Hematocrit 33.9 % (37.0-47.0); Hemoglobin 10.9 g/dL (12.0-15.0); Mean Corpuscular HGB Conc 32.2 g/dl (32-36); Mean Corpuscular Hemoglobin 28.5 pg (26-34); Mean Corpuscular Volume 88.5 fl (80-100); Platelet Count Result 240 k/mm3 (150-375); Red Blood Count 3.83 M/mm3 (4.2-5.4); White Blood Count 10.1 K/mm3 (4.5-10.0)
[2025-06-12 17:22] LABS: Add Urine Microscopic? YES; Appearance Urine Turbid (Clear); Glucose Urine UA Negative (Negative); Leukocyte Esterase Ur Trace LEU/UL (Negative); Nitrate Urine Negative (Negative); Non Pathogenic Casts 0-2; Specific Grav Ur 1.029 (1.001-1.035)
[2025-06-12 17:23] LABS: Alanine Aminotransferase 19 U/L (6-35); Albumin Level 4.3 g/dL (3.5-5.1); Alkaline Phosphatase 35 U/L (38-126); Anion Gap 9 mmol/L (4-12); Aspartate Amino Transferase 28 U/L (14-36); Bilirubin,Total 0.3 mg/dL (0.2-1.3); Blood Urea Nitrogen 11 mg/dL (7-17); Calcium 9.0 mg/dL (8.4-10.2); Carbon Dioxide 22 mmol/L (22-30); Chloride 104 mmol/L (98-107); Estimated CRCL calculation 109 ml/min; Estimated Glomerular Filt Rate > 60; Glucose 127 mg/dL (65-110); Potassium 3.7 mmol/L (3.4-5.0); Sodium 135 mmol/L (137-145); Total Protein 7.2 g/dL (6.3-8.2)
[2025-06-12 17:37] LABS: Band Neutrophils Percent 2 % (0-6); Lymphocytes Absolute Manual 0.10 K/mm3 (1.1-4.5); Lymphocytes Percent Manual 1.0 % (18-44); Monocytes Absolute Manual 0.10 K/mm3 (0.1-0.90); Monocytes Percent Manual 1 % (3-9); Neutrophils Absolute Manual 9.89 K/mm3 (1.3-6.7); Neutrophils Percent Manual 96 % (46-73); Total Cells Counted 100
[2025-06-12 17:38] LABS: Hypochromasia 1+; Schistocytes None Seen
--- OUTSIDE RECORDS SUMMARY | 2025-06-12 17:43 | XMS_ITS | Clinical Summary ---
Author Organization 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 on file Not on file Not [...] Comments Blood Pressure 116/84 10/31/2024 1:34 PM BAKERY ASSOCIATE Pulse 79 10/31/2024 1:34 PM BAKERY ASSOCIATE Temperature 36 C (96.8 F) 10/31/2024 1:34 PM BAKERY ASSOCIATE Respiratory Rate 14 10/31/2024 1:34 PM BAKERY ASSOCIATE Oxygen Saturation 99% 10/31/2024 1:34 PM BAKERY ASSOCIATE Inhaled Oxygen Concentration - - Weight 74.4 kg (164 lb) 10/31/2024 1:34 PM BAKERY ASSOCIATE Height 170.2 cm (5' 7) 10/31/2024 1:34 PM BAKERY ASSOCIATE Body Mass Index 25.69 10/31/2024 1:34 PM BAKERY ASSOCIATE Plan of Treatment Health Maintenance Due Date [...] this topic Medical Devices Implanted Type Area Criminal Investigative Agent Device Identifier Shelf Expiration Date Model / Serial / Lot [employer] [id number] Seprafilm 6x5in Barrier Adhesion Sterile Disposable Latex Free - [id number] Implanted:Qty: 1 on 06/26/2020 by Manohar Munoz MD at [facility] [employer] [id number] 09/27/2022 [id number] / / [id number] Procedures Procedure Name Priority Date/Time Associated Diagnosis Comments PAP AND HIGH RISK HPV, REFLEX TO GENOTYPING Routine 08/08/2020 9:20 AM CDT follow-up HEPATITIS C ANTIBODY Routine 12/10/2019 1:19 PM BAKERY ASSOCIATE from Last 3 Months or Most Recently Relevant to Health Maintenance Results * Pap and High Risk HPV, reflex to Genotyping (08/08/2020 9:20 AM CDT) Swab 08/08/2020 9:20 AM CDT 08/22/2020 12:44 PM CDT Narrative PATHOLOGY [facility] - 08/28/2020 10:30 AM CDT [address] [address] Tele: Kacie Johnson MD - Javascript Front End Developer CYTOLOGY REPORT Patient Name: ISA TOM Address: [address] [place] [address] Gender: F : 1990 (Age: 30) Service: Laboratory Location: Lab [facility] #: [id number] Patient Type: [facility] Lab [...] SULY Hill (ASCP) Clerical Data Follow A; 99317 DIAGNOSIS COMMENT: Ancillary Testing: HPV High Risk [...] NP LAB CYTOLOGY ORDERABLES Final Result PATHOLOGY [facility] Laboratory Receiving [address] [place] [address] * Hepatitis C antibody (12/10/2019 1:19 PM BAKERY ASSOCIATE) Hep C Ab Non-Reactiv e Non-Reactiv e [facility] Blood specimen (specimen) 12/10/2019 1:19 PM BAKERY ASSOCIATE 12/10/2019 3:22 PM BAKERY ASSOCIATE Manohar Munoz MD LAB MICROBIOLOGY - GENERAL OR DERABLES Final Result Performing Organization Address City/[facility]/ZIP Co de Phone Number [facility] [address] Department [place] [address] from Last 3 Months or Most Recently Relevant to Health Maintenance Insurance ANTHEM [employer] CHOICE Member Subscriber Plan / Payer (Ef fective 2016-Present) Name:Isa Tom Relation to Subscriber:Spouse Name:KOCHARI Date of :1983 (Home) Address: [facility] [facility] [place] [address] Payer ID:[id number] (NA) Type:[facility] Address: [address] OPEN ACCESS CIGNA OPEN ACCESS OBMedicalCHARLA OPEN ACCESS Advance Directives For more information, please contact: [phone] * Full Code (Latest Code Status on File) Date Activated Date Inactivated Comments 06/26/2020 5:44 PM 06/29/2020 2:22 PM * Full Code Date Activated Date Inactivated Comments 06/26/2020 10:08 AM 06/26/2020 5:44 PM Full CPR in case of cardiopulmonary arrest * Full Code Date Activated Date Inactivated Comments 10/09/2019 8:09 AM 10/10/2019 4:40 AM Care Teams Knot Borer Relationship Specialty Start Date End Date Micheal Leslie MD [address] [facility] [address] [place] [address] PCP - General Family Medicine 10/03/23 Keith Palacios MD [address] [facility] [address] [facility] [address] [place] [address] Referring Physician Obstetrics and Gynecology 10/31/24
--- OUTSIDE RECORDS SUMMARY | 2025-06-12 17:43 | XMS_ITS | Continuity of Care Document ---
Author Organization [facility] Address [address] [place] [address] Phone Care Team Providers Care Master Glazier Name Role Phone Susan PT, SHELLYT, Brennon Unavailable Unavailable Procedures Procedure Date PT Evaluation Moderate Complexity Therapeutic Activities Neuromuscular Re-Ed Therapeutic Exercise Advance Directives Directive Yes / No Effective Date File Name No Information Encounters Encounter Description Practice Location Reason(s) For Visit Diagnoses Date Provider Providers Copied on Encounter [facility], [address] [facility] [address], [place], [place], [id number], tel:[phone] Jane Lew No Information 4 Susan Willett. . [facility], [address], [place], [place], [id number], tel:[phone] Jane Lew No Information 3 Susan Willett. . Referring Provider: Access Direct. Family History Family Member Type Diagnosis Age At Onset No Information Payers Payer name Insurance type Covered republican ID Authoriza tion(s) [place] [facility] [id number] Social History Type Description Quantity Date Captured [...]
--- OUTSIDE RECORDS SUMMARY | 2025-06-12 17:43 | XMS_ITS | Data Portability ---
Author Organization [facility] Address [address] [place] [address] Care Team Providers Care Wharf Hand Name Role Phone CHEPE RUCKER Primary Care Provider Unavailab le Assessment No assessment recorded. Plan of Treatment Reminders Order Date Submit Date Provider Last Modified By Organization Details Last Modified Time Details Appointments ANY 15 2025 01:00P M RALEIGH Sepulveda Not available Not available Not available Lab CMP, serum or plasma 2024 025 [facility], [address], [place], [address], 04/24/2025 13:29:48 vitamin B12 + folate, serum or blood 2024 025 [facility], [address], [place], [address], 04/24/2025 13:30:10 HbA1c (hemoglo bin A1c), blood 2024 025 [facility], [address], [place], [address], 04/24/2025 13:29:59 CBC w/ auto diff 2024 025 [place] [facility], [address], [place], [address], 04/24/2025 13:30:20 iron + TIBC + ferritin , serum 2024 025 [email or web address], [address] [place], [address], 04/24/2025 13:29:33 Referral None recorded . Procedures [...] eral No observ ation record ed. [email or web address] [facility] [address] [place], [address], 04/23/2025 14:00:39 Result Notes None recorded. Problems Name Problem SNOMED Code Status Onset Date Resolution Date Notes Provider Name and Address Organization Details Recorded Time Body mass index 25-29 - overweight 177647412 Active 2024 Gemma Bautista MA null, [place] [facility] 12:10:25 Iron deficiency anemia 94996305 Active 2024 RALEIGH Sepulveda Attn: Demi salazar,[address] [place], [address], [facility] - [facility] 5 21:11:25 Long-term drug therapy Active 2024 RALEIGH Sepulveda Attn: Demi salazar,[address] [place], [address], [place] - [facility] 5 21:11:27 Weight maintenance regimen 21894872 Active 2024 RALEIGH Sepulveda Attn: Demi g,[address] [place], [address], [facility] - [place] 5 21:11:28 Overweight in adulthood with body mass index of 25 or more but less than 30 328419212 Active 2024 RALEIGH Sepulveda Attn: Demi salazar,[address] [place], [address], [facility] - [facility] 5 14:03:07 Problem Notes None recorded. Procedures Surgical History Date Name Laterality Status Provider Name and Address Organization Details Recorded Time section completed Gemma Bautista MA [place] - [facility] 12/10/2024 14:07:46 Imaging Results None recorded. Procedure Notes None recorded. Medical Equipment None Reported. Allergies Allergen ID Allergen Name Allergen Category Reaction Reaction Severity Criticality Documentation Date Start Date Code Code System Note Provider Name and Address Organization Details Recorded Time 656678 amoxicill in medicatio n Not available Not available Not available 12/10/2024 723 RxNorm Gemma Bautista MA keke, [facility] 5 12:06:09 407260 Product containin g penicilli n (product) medicatio n Not available Not available Not available 12/10/2024 29165 8001 SNOMED Gemma Bautista MA keke, [facility] 12:06:15 Medications Name Sig Start Date Stop Date Status Note LastModified by Organization Details LastModified Time valacyclovi r 1 gram tablet Take as needed by oral route for 5 days. active Not Available Not Available No [...] Available Not Available No t Available Wegovy 1 mg/0.5 mL subcutaneou s pen injector Inject by subcutane ous route for 28 days. active Not Available Not Available No t Available Wegovy 0.5 mg/0.5 mL subcutaneou s pen injector INJECT 1/2 (ONE-HALF ) ML SUBCUTANE OUSLY ONCE A WEEK 06/11 completed Not Available Not Available Not Available [...] 12/10/2024 110/80 mm[Hg] RALEIGH Sepulveda Attn: Accounting,[address] [place], [address], [facility] 12/10/2024 12:35:53 Date Recorded Body weight Respiratory rate Body mass index (BMI) Body height Oxygen saturation Oxygen saturation in Arterial blood by Pulse oximetry Heart rate Systolic And Diastolic Provider Name and Address Organization Details Last Updated DateTime 65219.9 6 g 18 /min 25.4 kg/m2 170.18 cm 100 % 100 % 92 /min 126/82 mm[Hg] Gemma Bautista MA [facility] 12:11:41 Date Recorded Body height Body mass index (BMI) Body weight Oxygen saturation Oxygen saturation in Arterial blood by Pulse oximetry Heart rate Systolic And Diastolic Provider Name and Address Organization Details Last Updated DateTime 170.18 cm 26.3 kg/m2 36355.5 2 g 100 % 100 % 81 /min 122/80 mm[Hg] Gemma Bautista MA [facility] 14:00:37 Social History Question Answer Notes LastModified by Organizat ion Details LastModified Time Tobacco Smoking Status Never Smoker Gemma Bautista MA null, [facility] 12/10/2024 12:09:08 Do You Have An Advance [...] Date Of Your Most Recent Tobacco Screening? 06/11/2025 Information not available 06/11/2025 What Is Your Relationship Status? Information not [...] Skin Problems N Anemia N Heart Attack (ME) N Anxiety Disorder N Diabetes N Muscle, [...] (days) 4 Flow Moderate Date of LMP 05/29/2025 LMP Approximate Obstetrics History GPAL:G 3 P [...] 30 mcg/0.3 mL dose 01/27/2021 completed Gemma Bautista [place] null, [place] - [facility] 12/10/2024 12:09:14 COVID-19, mRNA, LNP-S, PF, 30 mcg/0.3 mL dose 02/17/2021 erin Bautista [place] null, [place] [facility] 12/10/2024 12:09:14 COVID-19, mRNA, LNP-S, PF, 30 mcg/0.3 mL dose 10/23/2021 HILARIO [place] [facility] 12/10/2024 12:09:14 COVID-19, mRNA, [...] Influenza, split virus, quadrivalent, PF 09/01/2020 completed HILARIO [place] [facility] 12/10/2024 12:09:14 Influenza, split virus, quadrivalent, PF 09/09/2018 completed HILAR[place] [facility] 12/10/2024 12:09:14 Influenza, split virus, quadrivalent, PF 10/03/2023 completed [place]ILAR[place] [facility] 12/10/2024 12:09:14 Influenza, split virus, quadrivalent, PF 10/23/2021 completed [place]ILAR[place] [facility] 12/10/2024 12:09:14 Past Encounters Encounter ID Performer Location Encounter Start Date Encounter Closed Date Diagnosis/Indication Diagnosis SNOMED-CT Code Diagnosis ICD10 Code Diagnosis Note [id number] Manohar Pantoja MD [facility] [place] Miller [address] [place] [address] 12/10/2024 11:38:56 12/10/2024 13:05:44 Body mass index 25-29 - overweight 514837117 Z68.25 BMI is 25.4 Adult heal th examination 468133342 Z00.00 Annual wellness exam completed. Labs are up-to-date from previous PCP and reviewed on her [employer] portal today Weight vicki ntenance regimen 53991480 Z71.3 Patient has had much success on Wegovy therapy she is currently taking Wegovy 0.5 mg weekly dosing for maintenanc e Long-term drug therapy 087245966 Z79.891 Routine CMP, B12 and folate will be due in February Diabetes m ellitus screening 915076661 Z13.1 A1c screening due in February Iron defic iency anemia 97799371 D50.9 History of iron deficiency anemia reported and updated CBC and iron studies will be done in February [id number] Manohar Pantoja MD [facility] [place] [address] [place] [address] 06/11/2025 13:52:56 06/11/2025 15:18:08 Overweight in adulthood with body mass index of 25 or more but less than 30 884373502 E66.3 Z68.26 BMI is 26.3 Generalize d anxiety disorder 48897591 F41.1 Iron defic iency anemia 88809095 D50.8 History of iron deficiency anemia and getting ablation tomorrow. Long-term current use of drug therapy 098111988 Z79.899 Cholesterol screening 27 8701499 Z13.220 Health Concerns Section Related Observation LastModified by Organization Detai ls LastModified Time None Recorded Concern Status LastModified by Organization Details LastModified Time None Recorded Advance Directives Directive Y: will Payers Insurance Date Sequence Insurance Name Policy Number Policy Powell Covered Member ID Powell Member ID Guarantor Name 06/08/2025 1 CHRISSY [id number] Chari Tom [id number] Ruthie Tom Notes Date Note Type [...] sugar completed and viewed in pt's portal [employer]. RALEIGH Sepulveda Attn: Accounting,[address] [place], [address], [facility] - [facility] 12/27/2024 21:12:06 OBGyn Episode No OBEpisode recorded.
--- OUTSIDE RECORDS SUMMARY | 2025-06-12 17:43 | XMS_ITS | Referral Summary ---
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 on file Not on file Not o n file Last Filed Vital Signs Vital Sign Reading Time Taken Comments Blood Pressure 116/84 10/31/2024 1:34 PM JEWELRY SALES REPRESENTATIVE Pulse 79 10/31/2024 1:34 PM JEWELRY SALES REPRESENTATIVE Temperature 36 C (96.8 F) 10/31/2024 1:34 PM JEWELRY SALES REPRESENTATIVE Respiratory Rate 14 10/31/2024 1:34 PM JEWELRY SALES REPRESENTATIVE Oxygen Saturation 99% 10/31/2024 1:34 PM JEWELRY SALES REPRESENTATIVE Inhaled Oxygen Concentration - - Weight 74.4 kg (164 lb) 10/31/2024 1:34 PM JEWELRY SALES REPRESENTATIVE Height 170.2 cm (5' 7) 10/31/2024 1:34 PM JEWELRY SALES REPRESENTATIVE Body Mass Index 25.69 10/31/2024 1:34 PM JEWELRY SALES REPRESENTATIVE Plan of Treatment Not on file Medical Devices Implanted Type Area Die Lay Out Worker Device Identifier Shelf Expiration Date Model / Serial / Lot [employer] [id number] Seprafilm 6x5in Barrier Adhesion Sterile Disposable Latex Free - [id number] Implanted:Qty: 1 on 06/26/2020 by Manohar Munoz MD at [facility] [employer] [id number] 09/27/2022 [id number] / / [id number] Procedures Procedure Name Priority Date/Time Associated Diagnosis Comments PAP AND HIGH RISK HPV, REFLEX TO GENOTYPING Routine 08/08/2020 9:20 AM CDT follow-up HEPATITIS C ANTIBODY Routine 12/10/2019 1:19 PM JEWELRY SALES REPRESENTATIVE from Last 3 Months or Most Recently Relevant to Health Maintenance Results * Pap and High Risk HPV, reflex to Genotyping (08/08/2020 9:20 AM CDT) Swab 08/08/2020 9:20 AM CDT 08/22/2020 12:44 PM CDT Narrative PATHOLOGY [facility] - 08/28/2020 10:30 AM CDT [address] [address] Tele: Kacie Johnson MD - Safety Professional CYTOLOGY REPORT Patient Name: ISA TOM Address: [address] [place] [place] [address] Gender: F : 1990 (Age: 30) Service: Laboratory Location: Lab [facility] #: [id number] Patient Type: [facility] Lab Taken: 08/08/2020 Received: 08/22/2020 Reported: [...] SULY Hill (ASCP) Clerical Data Follow A; [id number] DIAGNOSIS COMMENT: Ancillary Testing: HPV High Risk [...] CYTOLOGY ORDERABLES Final Result Performing Organization Address [facility]/ZIP Co de Phone Number PATHOLOGY [facility] Laboratory Receiving [address] [place] [address] * Hepatitis C antibody (12/10/2019 1:19 PM JEWELRY SALES REPRESENTATIVE) Hep C Ab Non-Reactiv e Non-Reactiv e [facility] Blood specimen (specimen) 12/10/2019 1:19 PM JEWELRY SALES REPRESENTATIVE 12/10/2019 3:22 PM JEWELRY SALES REPRESENTATIVE Manohar Munoz MD LAB MICROBIOLOGY - GENERAL OR DERABLES Final Result Performing Organization Address [facility] Co de Phone Number [facility] [address] [place] [address] from Last 3 Months or Most Recently Relevant to Health Maintenance Insurance [employer] ACCESS CHOICE CIGNA OPEN ACCESS CIGNA OPEN ACCESS CIGNA OPEN ACCESS Advance Directives For more information, please contact: [phone] * Full Code (Latest Code Status on File) Date Activated Date Inactivated Comments 06/26/2020 5:44 PM 06/29/2020 2:22 PM * Full Code Date Activated Date Inactivated Comments 06/26/2020 10:08 AM 06/26/2020 5:44 PM Full CPR in case of cardiopulmonary arrest * Full Code Date Activated Date Inactivated Comments 10/09/2019 8:09 AM 10/10/2019 4:40 AM Care Teams Macerator Operator Relationship Specialty Start Date End Date Micheal Leslie MD [address] [facility] [address] [place] [address] PCP - General Family Medicine 10/03/23 Keith Palacios MD [address] [place] [address] Referring Physician Obstetrics and Gynecology 10/31/24
--- OUTSIDE RECORDS SUMMARY | 2025-06-12 17:43 | XMS_ITS | Encounter Summary ---
Author Organization [facility] Healthcare Address [address] [place] [address] Care Team Providers Care Retail Maintenance Technician Name Role Phone Mercedes Goldberg Primary Care Pr ovider Micheal Leslie MD Primary Care Provider [phone] Keith Palacios MD Unavailable Encounter Details Date Type Department Care Team (Late st Contact Info) Description 07/04/2020 Documentation [facility] [address] [place] [address] Tosha Araujo, RN Social History Tobacco Use Types Packs/Day Years Used Date Smoking Tobacco: Never Smokeless Tobacco: Never Alcohol Use Standard Drinks/Week Comments Yes 0 (1 standard drink = 0.6 oz pur e alcohol) occasionally [place] Depression Scale Answer Date Recorded [place] Depression Scale Total 0 06/27/2020 The thought of harming myself has occurred to me . Never 06/27/2020 Comments Yes Sex and Gender Information Value Date Recorded Sex Assigned at Not on file Legal Sex Female 8:28 AM FIRST ASSIST Gender Identity Female 10/02/2023 5:39 PM FIRST ASSIST Sexual Orientation Lesbian 10/02/2023 5: 39 PM FIRST ASSIST documented as of this encounter Miscellaneous Notes * Note - Tosha Araujo, RN - 07/04/2020 9:21 AM CDT Returned phone call. No answer and unable to leave message. documented in this encounter Plan of Treatment Not on file documented as of this encounter Visit Diagnoses Not on filedocumented in this encounter Care Teams Retail Maintenance Technician Relationship Specialty Start Date End Date Mercedes Goldberg PA PCP - General 10/18/18 10/02/23 Micheal Leslie MD [address] [facility] [address] [place] [address] PCP - General Family Medicine 10/03/23 Keith Palacios MD [address] [facility] [address] [place] [address] Referring Physician Obstetrics and Gynecology 10/31/24 documented as of this encounter
--- OUTSIDE RECORDS SUMMARY | 2025-06-12 17:43 | XMS_ITS | Clinical Summary ---
Author Organization [facility] Address [address] [facility] [place] [address] Care Team Providers Care Bottle Washer Machine Name Role Phone Lashell Gupta MD Unavailable [phone] Cookie Rodriguez MD Primary Care Provider [phone] Source Comments [facility],non-owned Affiliates and Associated Physician Practices is amultiple site organization consisting of ambulatory clinics and hospital sitesin [place], [place], [place] and [place]. This disclosure is being madepursuant to the Care Everywhere program and may not contain all information available regarding this patient. Last updated 18.[facility] Allergies Active Allergy Reactions Criticality Noted Date [...] on file Legal Sex Female 1:19 PM WELDING MACHINE OPERATOR Gender Identity Not on file Sexual Orientation Not on file Last Filed Vital Signs Vital Sign Reading Time Taken Comments Blood Pressure 120/78 11/29/2017 3:21 PM WELDING MACHINE OPERATOR Pulse 100 11/29/2017 3:21 PM WELDING MACHINE OPERATOR Temperature 37.9 C (100.3 F) 11/29/2017 3:21 PM WELDING MACHINE OPERATOR Respiratory Rate 20 11/29/2017 3:21 PM WELDING MACHINE OPERATOR Oxygen Saturation 99% 11/29/2017 3:21 PM WELDING MACHINE OPERATOR Inhaled Oxygen Concentration - - Weight 78 kg (172 lb) 11/29/2017 3:21 PM WELDING MACHINE OPERATOR Height 170.2 cm (5' 7) 11/29/2017 3:21 PM WELDING MACHINE OPERATOR Body Mass Index 26.94 11/29/2017 3:21 PM WELDING MACHINE OPERATOR Plan of Treatment Health Maintenance Due Date [...] topic Insurance [employer] Care Teams Bottle Washer Machine Relationship Specialty Start Date End Date Cookie Rodriguez MD PCP - General Internal Medicine 08/07/13 Lashell Gupta MD Psychiatry 08/07/13
[2025-06-12 18:49] VITALS: BP 128/87; PULSE 85; RESP 16; O2SAT 98
--- NOTE | 2025-06-12 18:53 | PC.NURSE ---
Dr. Adamson at bedside updating pt. and pt. visitor.
[2025-06-12 19:36] VITALS: BP 124/82; PULSE 80; RESP 16; O2SAT 98
== END 2025-06-12 19:38 | disposition home or self-care (01) ==
PROVIDERS: Emergency Provider Emergency Medicine; PCP Physician Assistant
DX: G89.18 Other acute postprocedural pain (principal)
CPT/HCPCS: 36415; 74177; 80053; 81001; 81025; 85025; 96361; 96374; 96375; 99284; J1171; J2405; J7030; Q9967